=== PATIENT | female | born 1955 | race Caucasian/White ===

== ENCOUNTER 2024-10-27 09:11 | Outpatient (OUT) | payer MEDICARE, SELFPAY ==
--- OUTSIDE RECORDS SUMMARY | 2024-10-27 09:13 | XMS_ITS | Encounter Summary ---
Author Organization [facility] Address [address] [facility] [place] [address] Care Team Providers Care Apiarist Name Role Phone Holden Quintana Primary Care Provider [phone] Encounter Details Date Type Department Care Team ([facility] Contact Info) Description 02/13/2023 Abstract [facility] [address] [phone] Magy Fierro, [address] [facility] [address] [place] [address] Social History Tobacco Use Types Packs/Day Years Used Date Smoking Tobacco: Never Smokeless Tobacco: Never Alcohol Use Standard Drinks/Week Comments Not Currently 0 (1 standard drink = 0.6 oz pure alcohol) caffeine intake: 1-2 cups per day; soda Comments Unknown Sex and Gender Information Value Date Recorded Sex Assigned at Not on file Legal Sex Female 6:56 PM EDT Gender Identity Not on file Sexual Orientation Not on file documented as of this encounter Plan of Treatment Upcoming Encounters Date Type Department Care Team ([facility] Contact Info) Description 12/15/2024 11:15 AM EDT Office Visit [facility] [address] [facility] [address] [place] [phone] Magy Fierro, [address] [facility] [address] [place] [address] documented as of this encounter Visit Diagnoses Not on filedocumented in this encounter Care Teams Apiarist Relationship Specialty Start Date End Date Holden Quintana [address] [facility] [place] [address] PCP - General Family Medicine 11/06/22 documented as of this encounter
--- OUTSIDE RECORDS SUMMARY | 2024-10-27 09:13 | XMS_ITS | Encounter Summary ---
Author Organization [facility] Address [address] [facility] [place] [address] Care Team Providers Care Manager Financial Systems Name Role Phone Holden Quintana Primary Care Provider [phone] Encounter Details Date Type Department Care Team (Late Contact Info) Description 12/06/2022 External Result Encounter [facility] External Department Unsolicited Magy Fierro, DO [address] [facility] [address] [place] [address] Social History Tobacco Use Types Packs/Day Years Used Date Smoking Tobacco: Never Assessed Comments Unknown Sex and Gender Information Value Date Recorded Sex Assigned at Not on file Legal Sex Female 6:56 PM EDT Gender Identity Not on file Sexual Orientation Not on file documented as of this encounter Plan of Treatment Upcoming Encounters Date Type Department Care Team ([facility] Contact Info) Description 12/15/2024 11:15 AM EDT Office Visit [facility] [address] [facility] [address] [place] [phone] Magy Fierro, DO [address] [facility] [address] [place] [address] documented as of this encounter Procedures Procedure Name Priority Date/Time Associated Diagnosis Comments BI MAMMOGRAM SCREENING BILATERAL 12/06/2022 9:02 AM EDT documented in this encounter Results * Bilateral screening mammogram (12/06/2022 9:02 AM EDT) Anatomical Region Laterality Modality Breast Bilateral Mammography 12/06/2022 9:02 AM EDT Impressions 12/06/2022 12:33 PM EDT No mammographic evidence of malignancy. Routine follow-up recommended in one year. RESULT CODE: 2 Benign Findings(s) DENSITY CODE: 2 (approximately 25-50% glandular) FOLLOW UP: 1YR THE FALSE-NEGATIVE RATE OF MAMMOGRAPHY IS APPROXIMATELY 10%. IMAGING OF A PALPABLE ABNORMALITY MUST BE BASED ON CLINICAL GROUNDS. PATIENT WAS ENTERED INTO A REMINDER SYSTEM WITH A TARGET DUE DATE FOR THE NEXT MAMMOGRAM. Impression dictated by: Alexey Villatoro M.D.12/06/2022 9:09 AM Dictation Location: [facility] Transcribed By: PWS 12/06/22908 Dictated By: Alexey Villatoro DO 12/06/22901 Signed By: <Electronically signed by Alexey Villatoro DO in OV> 12/06/22 09 Narrative 12/06/2022 12:33 PM EDT [facility] [address] Mammography Report Signed Patient: Mirella Roblero MR#: [id number] : 1955 Acct:[id number] Age/Sex: 67 / F ADM Date: 12/06/22 Loc: [place] Room: Type: [facility] Attending Dr: Magy Fierro DO Copies to: DO Magy Howell DO Ordering Provider: Magy Fierro DO Date of Service: 12/06/22 MM/MM screening mammo BI w/CAD: screening;Breast cancer screening BILATERAL Screening Full Field digital mammogram with 3-D imaging. Full field digital CC and MLO imaging performed. CAD utilized. COMPARISON: 12/05/2021 HISTORY: Annual screening BREAST COMPOSITION: Scattered fibroglandular densities of the breast parenchyma identified BENIGN BREAST CALCIFICATIONS: Present VASCULAR CALCIFICATIONS: None DEVELOPING ARCHITECTURAL DISTORTION: None DEVELOPING BREAST NODULE: None DEVELOPING MALIGNANT CALCIFICATIONS: None AXILLARY LYMPH NODES: Normal POSTSURGICAL CHANGES: Right biopsy marking clip redemonstrated. MM/MM screening mammo BI w/CAD Procedure Note Radiology, Radiologist, - 12/06/2022 [facility] [address] [place] [address] Mammography Report Signed Patient: Mirella Roblero AMR#: [id number] : 5Acct:[id number] Age/Sex: 67 / FADM Date: 12/06/22 Loc: [place] Room:[facility] Attending Dr: Magy Fierro DO Copies to: DO Magy Howell DO Ordering Provider: Magy Fierro DO Date of Service: 12/06/22 MM/MM screening mammo BI w/CAD:screening;Breast cancer screening BILATERAL Screening Full Field digital mammogram with 3-D imaging. Full field digital CC and MLO imaging performed. CAD utilized. COMPARISON: 12/05/2021 HISTORY: Annual screening BREAST COMPOSITION: Scattered fibroglandular densities of the breastparenchyma identified BENIGN BREAST CALCIFICATIONS: Present VASCULAR CALCIFICATIONS: None DEVELOPING ARCHITECTURAL DISTORTION: None DEVELOPING BREAST NODULE: None DEVELOPING MALIGNANT CALCIFICATIONS: None AXILLARY LYMPH NODES: Normal POSTSURGICAL CHANGES: Right biopsy marking clip redemonstrated. MM/MM screening mammo BI w/CAD IMPRESSION: No mammographic evidence of malignancy. Routine follow-up recommended inone year. RESULT CODE: 2 Benign Findings(s) DENSITY CODE: 2 (approximately 25-50% glandular) FOLLOW UP: 1YR THE FALSE-NEGATIVE RATE OF MAMMOGRAPHY IS APPROXIMATELY 10%. IMAGING OF A PALPABLE ABNORMALITY MUST BE BASED ON CLINICAL GROUNDS. PATIENT WAS ENTERED INTO A REMINDER SYSTEM WITH A TARGET DUE DATE FOR THENEXT MAMMOGRAM. Impression dictated by: Alexey Villatoro M.D.12/06/2022 9:09 AM Dictation Location: [facility] Transcribed By: [facility] 12/06/22908 Dictated By: Alexey Villatoro DO 12/06/22901 Signed By: <Electronically signed by Alexey Villatoro DO in OV> 12/06/22908 us Magy Fierro DO IMG BI PROCEDURES Final Res ult documented in this encounter Visit Diagnoses Not on filedocumented in this encounter Care Teams Manager Financial Systems Relationship Specialty Start Date End Date Holden Quintana [address] [place] [address] PCP - General Family Medicine 11/06/22 documented as of this encounter
--- OUTSIDE RECORDS SUMMARY | 2024-10-27 09:14 | XMS_ITS | Encounter Summary ---
Author Organization [facility] Address [address] [place] [address] Care Team Providers Care Torch Straightener And Heater Name Role Phone Holden Quintana DO Primary Care Provider [phone] Source Comments In the event this information is protected by the Federal Confidentiality of Alcohol and Drug AbusePatient Records regulations: The Federal rules restrict any use of the information to criminally investigate or prosecute any alcohol or drug abuse patient.[facility] Encounter Details Date Type Department Care Team (Late st Contact Info) Description 06/14/2021 Patient Msg [place] [address] Provider, Ccf Financial Clearance Social History Tobacco Use Types Packs/Day Years Used Date Smoking Tobacco: Never Smokeless Tobacco: Never Area Deprivation Index Answer Date Vicente rded National Score (1-100), lower number is lower ri sk Not on file 02/14/2021 State Score (1-10), lower number is lower risk N ot on file 02/14/2021 Data from: https://www.neighborhoodatlas.medicine.[facility].edu/. Last address used for calculation Not on file 02/14/2021 Comments No Sex and Gender Information Value Date Recorded Sex Assigned at Not on file Legal Sex Female 9:47 AM EST Gender Identity Not on file Sexual Orientation Not on file COVID-19 Exposure Response Date Recorded In the last month, have you been in contact with someone who was confirmed or suspected to have Coronavirus / COVID-19? No / Unsure 06/16/2021 11:47 AM EST documented as of this encounter Plan of Treatment Not on file documented as of this encounter Visit Diagnoses Not on filedocumented in this encounter Care Teams Torch Straightener And Heater Relationship Specialty Start Date End Date Holden Quintana DO [address] [place] [address] PCP - General 04/21/01 documented as of this encounter
--- OUTSIDE RECORDS SUMMARY | 2024-10-27 09:14 | XMS_ITS | Encounter Summary ---
Author Organization [facility] Address [address] [place] [address] Care Team Providers Care Pelletizer Operator Name Role Phone Holden Quintana DO Primary Care Provider [phone] Source Comments In the event this information is protected by the Federal Confidentiality of Alcohol and Drug AbusePatient Records regulations: The Federal rules restrict any use of the information to criminally investigate or prosecute any alcohol or drug abuse patient.[facility] Reason for Visit * Reason Comments Radiology XR Encounter Details Date Type Department Care Team (Late st Contact Info) Description 06/21/2021 Radiology Radiology [address] [place] [address] Ashley Cleveland, RT(R) Radiology XR Social History Tobacco Use Types Packs/Day Years Used Date Smoking Tobacco: Never Smokeless Tobacco: Never Area Deprivation Index Answer Date Vicente rded National Score (1-100), lower number is lower ri sk Not on file 02/14/2021 State Score (1-10), lower number is lower risk N ot on file 02/14/2021 Data from: https://www.neighborhoodatlas.medicine.[facility].edu/. Last address used for calculation Not on [...] have Coronavirus / COVID-19? No / Unsure 06/23/2021 5:02 PM EST documented as of this encounter Progress Notes * Ashley Cleveland RT(R) - 06/21/2021 9:25 AM EST Radiology Service Progress Note PATIENT NAME: Mirella Roblero DATE OF SERVICE: June 21, 2021 TIME: 9:25 AM PATIENT IDENTITY VERIFICATION COMPLETED USING TWO (2) IDENTIFIERS: Name and Date of confirmedby patient verbally. FALL SCREENING: Has the patient had 2 falls in the last year or 1 fall with injury or currently using an Ambulatory Assistive Device (Walker, Cane, Wheelchair, Crutches, etc.)? No PATIENT GENDER DATA: Female. status: : No status: NO. PATIENT RELEVANT IMPLANT DATA REVIEWED: Not Applicable RADIOLOGY DEPARTMENT: General X-ray: Exam(s) Completed: Spine X-Ray(s): Lumbar AP / LAT / L5-S1 Pelvis X-Ray: Pelvis with Hip Right PERIPHERAL IV DATA: Not applicable SIGNED BY: RT Kacey(R) June 21, 2021 9:25 AM documented in this encounter Plan of Treatment Not on file documented as of this encounter Visit Diagnoses Not on filedocumented in this encounter Care Teams Pelletizer Operator Relationship Specialty Start Date End Date Holden Quintana DO [address] [place] [address] PCP - General 04/21/01 documented as of this encounter
--- OUTSIDE RECORDS SUMMARY | 2024-10-27 09:14 | XMS_ITS | Encounter Summary ---
Author Organization [facility] Address [address] [facility] [place] [address] Care Team Providers Care Nautical Instrument Mechanic Name Role Phone Holden Quintana Primary Care Provider [phone] Reason for Visit * Reason Comments Med Refill Encounter Details Date Type Department Care Team ([facility] Contact Info) Description 11/18/2022 Refill [facility] [address] [address] Magy Fierro, DO [address] [address] Social History Tobacco Use Types Packs/Day Years Used Date Smoking Tobacco: Never Assessed Comments Unknown Sex and Gender Information Value Date Recorded Sex Assigned at Not on file Legal Sex Female 6:56 PM EDT Gender Identity Not on file Sexual Orientation Not on file documented as of this encounter Plan of Treatment Upcoming Encounters Date Type Department Care Team ([facility] Contact Info) Description 12/15/2024 11:15 AM EDT Office Visit [facility] [address] [address] Magy Fierro, DO [address] [facility] [address] [place], [place] [phone] documented as of this encounter Visit Diagnoses Not on filedocumented in this encounter Care Teams Nautical Instrument Mechanic Relationship Specialty Start Date End Date Holden Quintana [address] [facility] [place] [address] PCP - General Family Medicine 11/06/22 documented as of this encounter
--- OUTSIDE RECORDS SUMMARY | 2024-10-27 09:14 | XMS_ITS | Encounter Summary ---
Author Organization [facility] Address [address] [place] [address] Care Team Providers Care Mulling Machine Operator Name Role Phone Holden Quintana DO Primary Care Provider [phone] Source Comments In the event this information is protected by the Federal Confidentiality of Alcohol and Drug AbusePatient Records regulations: The Federal rules restrict any use of the information to criminally investigate or prosecute any alcohol or drug abuse patient.[facility] Encounter Details Date Type Department Care Team (Late st Contact Info) Description 04/12/2021 Patient Msg [facility] [place] [address] Provider, Ccf SCHEDULE INJECTION Social History Tobacco Use Types Packs/Day Years Used Date Smoking Tobacco: Never Smokeless Tobacco: Never Area Deprivation Index Answer Date Vicente rded National Score (1-100), lower number is lower ri sk Not on file 02/14/2021 State Score (1-10), lower number is lower risk N ot on file 02/14/2021 Data from: https://www.neighborhoodatlas.medicine.[facility].edu/. Last address used for calculation Not on [...] have Coronavirus / COVID-19? No / Unsure 04/07/2021 8:04 AM EDT documented as of this encounter Plan of Treatment Not on file documented as of this encounter Visit Diagnoses Not on filedocumented in this encounter Care Teams Mulling Machine Operator Relationship Specialty Start Date End Date Holden Quintana DO [address] [place] [address] PCP - General 04/21/01 documented as of this encounter
--- OUTSIDE RECORDS SUMMARY | 2024-10-27 09:14 | XMS_ITS | Encounter Summary ---
Author Organization [facility] Address [address] [place] [address] Care Team Providers Care Ovens Supervisor Name Role Phone Holden Quintana DO Primary Care Provider [phone] Source Comments In the event this information is protected by the Federal Confidentiality of Alcohol and Drug AbusePatient Records regulations: The Federal rules restrict any use of the information to criminally investigate or prosecute any alcohol or drug abuse patient.[facility] Encounter Details Date Type Department Care Team (Late st Contact Info) Description 01/05/2022 GI Preprocedure Call Ambulatory Surgery [address] [place] [address] [place] [address] [place] [address] Social History Tobacco Use Types Packs/Day Years Used Date Smoking Tobacco: Never Smokeless Tobacco: Never Area Deprivation Index Answer Date Vicente rded National Score (1-100), lower number is lower ri sk 54 10/25/2021 State Score (1-10), lower number is lower risk N ot on file 10/25/2021 Data from: https://www.neighborhoodatlas.medicine.[facility].edu/. Last address used for calculation [address] [facility] 10/25/2021 Comments No Sex and Gender Information Value Date Recorded Sex Assigned at Not on file Legal Sex Female 9:47 AM EST Gender Identity Not on file Sexual Orientation Not on file documented as of this encounter Plan of Treatment Not on file documented as of this encounter Visit Diagnoses Not on filedocumented in this encounter Care Teams Ovens Supervisor Relationship Specialty Start Date End Date Holden Quintana DO [address] [place] [address] PCP - General 04/21/01 documented as of this encounter
--- OUTSIDE RECORDS SUMMARY | 2024-10-27 09:14 | XMS_ITS | Clinical Summary ---
Author Organization [facility] Address [address] [place] [address] Care Team Providers Care Sorority Mother Name Role Phone Holden Quintana Primary Care Provider Allergies No known active allergies Medications amLODIPine (Norvasc) 5 MG tablet Take 5 mg by mouth in the morning. for blood pressure. 3 Active aspirin 81 MG chewable tablet Chew 81 mg in the morning. Active meloxicam (Mobic) 15 MG tablet take 1 tablet by mouth daily for back pain Active estradiol (Estrace) 1 MG tablet 1 (one) time each day at the same time. Active Premarin 0.625 MG/GM creamIndications :Postmenopausal HRT (hormone replacement therapy) INSERT 1 GRAM VAGINALLY TWICE WEEKLY 30 g 3 4 Active Active Problems Problem Noted Date Diagnosed Date Paresthesia of skin 06/02/2024 Spondylolisthesis, cervical region 06/02/2024 Arthritis of lumbar spine 09/24/2023 Acute hip pain, left 09/24/2023 Encounters Date Type Department Care Team Description 09/03/2024 Telephone [facility] [address] [place] [address] Magy Fierro DO from Last 3 Months Family History Medical History Relation Name Comments No Known Problems Daughter Covid Father Hypertension Father Alcohol abuse Mother Diabetes Mother Heart disease Mother Hypertension Mother Thyroid disease Mother Asthma Other Grandparent Stroke Paternal Grandfather Cancer Sibling Diabetes Sibling Prostate cancer Sibling Relation Name Status Comments Daughter Father Maternal Grandfather Maternal Grandmother Mother Other Grandparent Paternal Grandfather Paternal Grandmother Sibling Alive Social History Tobacco Use Types Packs/Day Years Used Date Smoking Tobacco: Never Smokeless Tobacco: Never Tobacco Cessation:Counseling Given: Not Answered Alcohol Use Standard Drinks/Week Comments Not Currently 0 (1 standard drink = 0.6 oz pure alcohol) caffeine intake: 1-2 cups per day; soda Comments Unknown Sex and Gender Information Value Date Recorded Sex Assigned at Not on file Legal Sex Female 6:56 PM EDT Gender Identity Not on file Sexual Orientation Not on file Last Filed Vital Signs Vital Sign Reading Time Taken Comments Blood Pressure 120/70 02/14/2023 11:37 AM EDT Pulse - - Temperature - - Respiratory Rate - - Oxygen Saturation - - Inhaled Oxygen Concentration - - Weight 64.9 kg (143 lb) 02/14/2023 11:37 AM EDT Height 160 cm (5' 3 ) 02/14/2023 11:37 AM EDT Body Mass Index 25.33 02/14/2023 11:37 AM EDT Plan of Treatment Upcoming Encounters Date Type Department Care Team (Late st Contact Info) Description 12/15/2024 11:15 AM EDT [facility] [address] [facility] [address] [place] [phone] Magy Fierro, DO [address] [facility] [address] [place] [address] Health Maintenance Due Date Last Done Comments CT Colonography 1955 FIT-DNA 1955 FIT 1955 FOBT 1955 Sigmoidoscopy 1955 Pneumococcal Vaccine: 65+ Ye ars (2 of 2 - PPSV23) 03/04/2022 03/04/2021 Mammogram 12/07/2023 12/06/2022, 07/0 10/2021, 06/05/2021, Additional history exists Colonoscopy 01/13/2032 01/12/2022, 01/12/2022 Colorectal Cancer Screening 01/13/2032 Influenza Vaccine Completed 03/19/2024, , 02/27/2022, Additional history exists Procedures Procedure Name Priority Date/Time Associated Diagnosis Comments BI MAMMOGRAM SCREENING BILATERAL 12/06/2022 9:02 AM EDT from Last 3 Months or Most Recently Relevant to Health Maintenance Results * Bilateral screening mammogram (12/06/2022 9:02 [...] Alexey Villatoro M.D.12/06/2022 9:09 AM Dictation Location: [facility] Transcribed By: [facility] 12/06/22 0909 Dictated By: Alexey Villatoro DO 12/06/22 0902 Signed By: <Electronically signed by Alexey Villatoro DO in OV> 12/06/22 0909 Narrative 12/06/2022 12:33 PM EDT [facility] Main [place] [address] [place] [address] Mammography Report Signed Patient: Mirella Roblero MR#: [id number] : 1955 Acct:[id number] Age/Sex: 67 / F ADM Date: 12/06/22 Loc: [place] Room: Type: [facility] Attending Dr: Magy Fierro DO Copies to: [...] mammo BI w/CAD Procedure Note Radiology, Radiologist, MD - 12/06/2022 [facility] Main [place] [address] [place], [place] [address] Mammography Report Signed Patient: Mirella Roblero AMR#: [id number] : 5Acct:[id number] Age/Sex: 67 / FADM Date: 12/06/22 Loc: [place] Room:Type: [facility] Attending Dr: Magy Fierro DO Copies to: [...] FOR THENEXT MAMMOGRAM. Impression dictated by: Alexey iVllatoro M.D.12/06/2022 9:09 AM Dictation Location: [facility] Transcribed By: TEN 12/06/22908 Dictated By: Alexey Villatoro DO 12/06/22901 Signed By: <Electronically signed by Alexey Villatoro DO in OV> 12/06/22 09 us Magy Fierro DO IMG BI PROCEDURES Final Res ult from Last 3 Months or Most Recently Relevant to Health Maintenance Insurance [employer] MEDICARE Care Teams Sorority Mother Relationship Specialty Start Date End Date Holden Quintana [address] [place] [address] PCP - General Family Medicine 11/06/22
--- OUTSIDE RECORDS SUMMARY | 2024-10-27 09:14 | XMS_ITS | Clinical Summary ---
Author Organization [facility] Address [address] [place], [place] [id number] Care Team Providers Care Cable Television Technician Name Role Phone Holden Quintana DO Primary Care Provider [phone] Allergies No known active allergies Medications conjugated estrogens (PREMARIN) vaginal cream Use 30 g vaginally one time a week. Active aspirin 81 mg chewable tablet Take 81 mg by mouth once daily. Active venlafaxine (EFFEXOR) 37.5 mg tablet Take 37.5 mg by mouth every other day. Active estradiol (ESTRACE) 2 mg tablet Take 2 mg by mouth every other day. Active multivitamin (VITAMIN DAILY ORAL) Take by mouth. Activ e CALCIUM ORAL Take by mouth. Ac tive glucosamine sulfate (GLUCOSAMINE ORAL) Take by mouth. Activ e psyllium seed, with sugar, (FIBER ORAL) Take by mouth. Ac tive meloxicam (MOBIC) 15 mg tablet Take 1 tablet by mouth once daily. 60 tablet 1 Active gabapentin (NEURONTIN) 100 mg capsule Take one tablet at bedtime for one week,2nd week take two tablets at bedtime,3rd week take three tablets at bedtime as tolerated. 90 capsule 2 2 Active polyethylene glycol 3350 (MIRALAX, GLYCOLAX) 17 gram/dose powderIndications :Constipation, unspecified constipation type Use as directed for Miralax / Gatorade Bowel Prep Kit 238 g 2 Active Gatorade Sports DrinkIndications: Constipation, unspecified constipation type Use as directed for Miralax / Gatorade Bowel Prep Kit 2 Active Bisacodyl (DULCOLAX) 5 mg tabIndications:Co nstipation, unspecified constipation type Use as directed for Miralax / Gatorade Bowel Prep Kit 4 tablet 2 Active Active Problems Problem Noted Date Diagnosed Date Radicular pain of right lower extremity 06/29/19 22 Lumbar degenerative disc disease 06/29/2021 Coccydynia 05/08/2021 Social History Tobacco Use Types Packs/Day Years Used Date Smoking Tobacco: Never Smokeless Tobacco: Never Area Deprivation Index Answer Date Vicente rded National Score (1-100), lower number is lower ri sk 54 06/29/2022 State Score (1-10), lower number is lower risk N ot on file 06/29/2022 Data from: https://www.neighborhoodatlas.medicine.[facility].edu/. Last address used for calculation [address] [facility] 06/29/2022 Comments No Sex and Gender Information Value Date Recorded Sex Assigned at Not on file Legal Sex Female 9:47 AM EST Gender Identity Not on file Sexual Orientation Not on file Last Filed Vital Signs Vital Sign Reading Time Taken Comments Blood Pressure 147/84 01/12/2022 11:05 AM EDT Pulse 53 01/12/2022 10:42 AM EDT Temperature 36.2 C (97.1 F) 01/12/2022 10:45 AM EDT Respiratory Rate 16 01/12/2022 11:05 AM EDT Oxygen Saturation 97% 01/12/2022 11:05 AM EDT Inhaled Oxygen Concentration - - Weight 67.1 kg (148 lb) 06/29/2021 8:29 AM EST Height 162.6 cm (5' 4 ) 09/29/2021 11:00 AM EDT Body Mass Index 25.4 06/29/2021 8:29 AM EST Plan of Treatment Health Maintenance Due Date Last Done Comments Anxiety Screening 1973 Depression Screening 1973 Hepatitis C Screening 1973 DTaP,Tdap,Td Vaccine (1 - Tdap) [address] Colonography 2000 Cologuard (FIT-DNA) 2000 Diabetes Screening 2000 Fecal Occult Blood 2000 Lipid Screening 2000 Sigmoidoscopy 2000 Bone Density Screening 2020 Pneumococcal Vaccine: 50+ (2 of 2 - PPSV23) 03/04/2022 03/04/2021 Colonoscopy 01/12/2023 01/12/2022 Colorectal Cancer Screening 01/12/2023 Covid-19 Vaccine (5 - 2023-2 5 season) 2024 10/19/2021, 03/04/2021, 08/18/2020, Additional history exists Advance Directive Discussion 06/03/2024 Influenza Vaccine (Season Ended) 2025 03/04/2021, 03/21/2020, 03/03/2020, Additional history exists RSV Vaccine (1 - 1-dose 75+ series) 2030 Shingrix Vaccine Completed 07/09/2019, 04/02/2019 Procedures Procedure Name Priority Date/Time Associated Diagnosis Comments COLONOSCOPY DIAGNOSTIC Routine 01/12/2022 10:11 AM EDT Constipation, unspecified constipation type from Last 3 Months or Most Recently Relevant to Health Maintenance Results * COLONOSCOPY DIAGNOSTIC (01/12/2022 10:11 AM EDT) Anatomical Region Laterality Modality Other 01/12/2022 10:1 1 AM EDT Narrative 01/12/2022 10:46 AM EDT [facility] Gastrointestinal Endoscopy Patient Name: Mirella Roblero Procedure Date: 01/12/2022 10:11 AM Date of : 1955 Admit Type: Outpatient Age: 66 Gender: Female Note Status: Finalized Procedure: Colonoscopy Indications: Constipation Providers: Derick Lin MD Patient Profile: This is a 66 year old female. Refer to note in patient chart for documentation of history and physical. Last Colonoscopy: 10 years ago. Referring Physician: Dina Croft CNP (Referring MD) Medicines: Monitored Anesthesia Care Complications: No immediate complications. Requesting Provider: Procedure: Pre-Anesthesia Assessment: - Prior to the procedure, a History and Physical was performed, and patient medications and allergies were reviewed. The patient's tolerance of previous anesthesia was also reviewed. The risks and benefits of the procedure and the sedation options and risks were discussed with the patient. All questions were answered, and informed consent was obtained. Prior Anticoagulants: The patient has taken no previous anticoagulant or antiplatelet agents. ASA Grade Assessment: II - A patient with mild systemic disease. After reviewing the risks and benefits, the patient was deemed in satisfactory condition to undergo the procedure. After I obtained informed consent, the scope was passed under direct vision. Throughout the procedure, the patient's blood pressure, pulse, and oxygen saturations were monitored continuously. The Colonoscope was introduced through the anus and advanced to the cecum, identified by appendiceal orifice and ileocecal valve. The colonoscopy was performed without difficulty. The patient tolerated the procedure well. The quality of the bowel preparation was excellent. The quality of the bowel preparation was evaluated using the BBPS (Burr Bowel Preparation Scale) with scores of: Right Colon = 3, Transverse Colon = 3 and Left Colon = 3 (entire mucosa seen well with no residual staining, small fragments of stool or opaque liquid). The total BBPS score equals 9. The ileocecal valve, appendiceal orifice, and rectum were photographed. Moderate Sedation: MAC anesthesia was administered by the anesthesia team. Findings: The perianal and digital rectal examinations were normal. A 2 mm polyp was found in the sigmoid colon. The polyp was sessile. The polyp was removed with a cold biopsy forceps. Resection and retrieval were complete. Internal hemorrhoids were found during retroflexion. The hemorrhoids were Grade II (internal hemorrhoids that prolapse but reduce spontaneously). The exam was otherwise without abnormality. Impression: - One 2 mm polyp in the sigmoid colon, removed with a cold biopsy forceps. Resected and retrieved. - Internal hemorrhoids. - The examination was otherwise normal. Recommendation: - Discharge patient to home (ambulatory). - Resume previous diet today. - Continue present medications. - Await pathology results. - Recommend 80 ounces water daily, benefiber BID and probiotic daily. - Repeat colonoscopy with pediatric scope for surveillance based on pathology results. - Patient has a contact number available for emergencies. The signs and symptoms of potential delayed complications were discussed with the patient. Return to normal activities tomorrow. Written discharge instructions were provided to the patient. Procedure Code(s): --- Professional --- 71238, Colonoscopy, flexible; with biopsy, single or multiple Diagnosis Code(s): --- Professional --- K63.5, Polyp of colon K64.1, Second degree hemorrhoids K59.00, Constipation, unspecified CPT copyright 2019 [employer]. All rights reserved. The codes documented in this report are preliminary and upon store mgr review may be revised to meet current compliance requirements. Attending Participation: I personally performed the entire procedure. Scope In: 10:25:10 AM Scope Out: 10:41:07 AM MD Derick Beltrán MD 01/12/2022 10:44:05 AM This report has been signed electronically by Derick Lin MD Number of Addenda: 0 Note Initiated On: 01/12/2022 10:11 AM Estimated Blood Loss: Estimated blood loss was minimal. 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
--- OUTSIDE RECORDS SUMMARY | 2024-10-27 09:14 | XMS_ITS | Clinical Summary ---
Author Organization [facility] Address [address] [place] [address] Phone Care Team Providers Care Stumper Feller Name Role Phone Unavailable Primary Care Provider Unavailabl e Social History Tobacco Use Types Packs/Day Years Used Date Smoking Tobacco: Never Assessed Comments Unknown Sex and Gender Information Value Date Recorded Sex Assigned at Not on file Legal Sex Female 5:58 PM EST Gender Identity Not on file Sexual Orientation Not on file Plan of Treatment Not on file
--- NOTE | 2024-10-27 09:16 | ECG_ITS ---
[facility] Test Date: 2024-10-27 Pat Name: DANIEL CHRISTY Department: Room: - Gender: Female Brass Burnisher: : 1955 Requested By: KATHRYN PENDLETON Order Number: [id number] Reading MD: BUD BAXTER M.D. Measurements Intervals Elbe Rate: 61 P: 6 IN: 169 QRS: -47 QRSD: 119 T: -62 QT: 434 QTc: 440 Interpretive Statements SINUS RHYTHM LEFT ANTERIOR FASCICULAR BLOCK [QRS AXIS <= -45, QR IN I, RS IN II] LEFT VENTRICULAR HYPERTROPHY AND ST-T CHANGE [VOLTAGE CRITERIA PLUS ST/T ABNORMALITY] POSSIBLE SEPTAL MYOCARDIAL INFARCTION [30 ms Q WAVE IN V1/V2], PROBABLY OLD Abnormal ECG No previous ECG available for comparison Electronically Signed On 10-27-2024 13:33:37 EDT by BUD BAXTER M.D.
--- NOTE | 2024-10-27 09:58 | PM.PRESUREVA ---
History of Present Illness History of Present Illness Chief complaint: Left Kidney Stone Narrative: Patient presents for presurgical testing accompanied by her . Please see HPI from Dr. Kingsley dated October 21, 2024. Review of Systems ROS Narrative Please see ROS from Dr. Kingsley dated October 21, 2024. [facility] Medical History (Updated 10/27/24 @ 09:44 by Hortencia Toro NP) Carpal tunnel syndrome ?G56.00 - Carpal tunnel syndrome, unspecified upper limb (ICD-10) Back pain ?M54.9 - Dorsalgia, unspecified (ICD-10) Arthritis ?M19.90 - Unspecified osteoarthritis, unspecified site (ICD-10) Low iron ?E61.1 - Iron deficiency (ICD-10) Asthma ?J45.909 - Unspecified asthma, uncomplicated (ICD-10) GERD (gastroesophageal reflux disease) ?K21.9 - Gastro-esophageal reflux disease without esophagitis (ICD-10) Hypertension ?I10 - Essential (primary) hypertension (ICD-10) Left renal stone ?N20.0 - Calculus of kidney (ICD-10) Surgical History (Updated 10/27/24 @ 09:44 by Hortencia Toro NP) History of cardiac catheterization (2020) ?Z98.890 - Other specified postprocedural states (ICD-10) History of colonoscopy ?Z98.890 - Other specified postprocedural states (ICD-10) S/P cataract extraction and insertion of intraocular lens ?Z98.49 - Cataract extraction status, unspecified eye (ICD-10) ?Z96.1 - Presence of intraocular lens (ICD-10) History of carpal tunnel release ?Z98.890 - Other specified postprocedural states (ICD-10) History of hysterectomy ?Z90.710 - Acquired absence of both cervix and uterus (ICD-10) History of cholecystectomy ?Z90.49 - Acquired absence of other specified parts of digestive tract (ICD-10) Family History (Updated 10/27/24 @ 09:44 by Hortencia Toro NP) Other Family history of diabetes mellitus Family history of heart disease Family history of hypertension Family history of myocardial infarction Family history of prostate cancer Family history of stroke Social History (Updated 10/27/24 @ 09:28 by Hortencia Toro NP) Within the past year, how often did you have a drink containing alcohol: monthly or less Smoking status: Never smoker Non-prescribed substance use: denies use Highest level of school completed/degree received: high school graduate Meds Home Medications and Allergies Home Medications ?Medication ?Instructions ?Recorded ?Confirmed ?Type amlodipine 5 mg tablet 5 mg PO DAILY 10/27/24 10/27/24 History conjugated estrogens 0.625 mg/gram 0.625 mg vaginal .twice weekly 10/27/24 10/27/24 History vaginal cream (Premarin) pantoprazole 40 mg tablet,delayed 40 mg PO DAILY 10/27/24 10/27/24 History release venlafaxine 37.5 mg 37.5 mg PO .every other day 10/27/24 10/27/24 History capsule,extended release 24 hr Allergies Allergy/AdvReac Type Severity Reaction Status Date / Time No Known Drug Allergies Allergy Verified 10/27/24 09:25 Exam Narrative Exam Narrative: Constitutional: Awake, alert, comfortable, well-appearing, nontoxic, interactive, vital signs as charted Head: Normocephalic, atraumatic Neck: Supple, normal appearance, normal range of motion, no meningeal signs, no lymphadenopathy Respiratory: No respiratory distress, breath sounds clear Cardiovascular: Regular rate and rhythm, strong and regular heart tones Abdomen: Nontender, normal bowel sounds, soft, no CVA tenderness Musculoskeletal: Normal gait, no swelling or edema Skin: No rashes or induration, no lesions, only visible skin inspected Neuro: No neurological deficits, normal sensation Psychiatric: Oriented ?3, normal affect Assessment and Plan Assessment and Plan (1) Left renal stone: Plan Left ESWL scheduled with Dr. Kingsley November 05, 2024.
[2024-10-27 10:14] LABS: Basophils Percent Auto 0.5 % (0.2-2.0); Eosinophils Absolute Auto 0.2 10^3/uL (0.0-0.7); Eosinophils Percent Auto 5.5 % (0.9-7.0); Hematocrit 42.6 % (36.0-48.0); Hemoglobin 14.3 g/dL (12.0-16.0); Immature Granulocytes Abs Auto 0.01 10^3/uL (0.00-0.03); Immature Granulocytes Pct Auto 0.2 % (0.0-0.5); Lymphocytes Percent Auto 24.5 % (20.5-60.0); Mean Corpuscular HGB Conc 33.6 g/dL (29.9-35.2); Mean Corpuscular Hemoglobin 30.2 pg (26.7-34.0); Mean Corpuscular Volume 90.1 fL (81.0-99.0); Mean Platelet Volume 10.3 fL (9.5-13.5); Monocytes Absolute Auto 0.6 10^3/uL (0.3-0.8); Monocytes Percent Auto 14.6 % (1.7-12.0); Neutrophils Absolute Auto 2.3 10^3/uL (1.4-6.5); Neutrophils Percent Auto 54.7 % (43.0-75.0); Platelet Count 222 10^3/uL (150-450); Red Blood Count 4.73 10^6/uL (4.20-5.40); Red Cell Distribution Width 11.9 % (11.0-15.0); White Blood Count 4.2 10^3/uL (4.0-11.0)
[2024-10-27 10:17] LABS: Anion Gap 12.8; BUN Creatinine Ratio 15.1; Carbon Dioxide 29.2 mmol/L (21.0-32.0); Chloride 105 mmol/L (98-107); Estimated GFR (African America >60 (>=60 mL/min/1.73m^2); Estimated GFR (Non-African Ame 60 (>=60 mL/min/1.73m^2); Glucose 91 mg/dL (74-106); Sodium 143 mmol/L (136-145)
[2024-10-27 10:22] LABS: INR 0.99; Partial Thromboplastin Time 27.4 sec (22.3-36.2); Prothrombin Time 10.5 sec (9.0-11.6)
== END 2024-10-27 09:12 | disposition home or self-care (01) ==
LOC: PST 09:12
PROVIDERS: PCP Family Medicine; Visit Provider Urology
DX: Z01.810 Encounter for preprocedural cardiovascular examination (principal); Z01.812 Encounter for preprocedural laboratory examination; Z01.818 Encounter for other preprocedural examination; N20.0 Calculus of kidney
CPT/HCPCS: 80048; 85025; 85610; 85730; 93005; G0463

== ENCOUNTER 2024-11-05 09:54 | Day surgery (SDC) | payer MEDICARE, SELFPAY ==
[2024-10-27 09:51] VITALS: BP 156/75; PULSE 66; TEMP 36.3; O2SAT 98; BMI 25.7
--- OUTSIDE RECORDS SUMMARY | 2024-11-02 14:00 | XMS_ITS | Encounter Summary ---
Author Organization [facility] Address [address] [place] [address] Phone Care Team Providers Care Tower Helper Name Role Phone Holden Quintana DO Primary Care Provider [phone] Agapito Kingsley MD Unavailable Reason for Referral * Consultation (Routine) - Authorized Specialty Diagnoses / Procedures Referred By Contac t Referred To Contact Cardiology Diagnoses Mild CAD Procedures Follow Up In Cardiology Pushpa Hawthorne APRN-CNP [address] [address] Phone: tel: fax: Referral ID Status Reason Start Date Expiration Date V isits Requested Visits Authorized [id number] Authorized 11/02/2024 11/02/2025 1 1 * Cardiovascular (Routine) - Authorized Specialty Diagnoses / Procedures Referred By Contkita t Referred To Contact Diagnoses Pre-operative cardiovascular examination Procedures ECG 12 Lead Pushpa Hawthorne APRN-CNP 703 [facility] [address] [address] Phone: tel: fax: Referral ID Status Reason Start Date Expiration Date V isits Requested Visits Authorized [id number] Authorized 11/02/2024 11/02/2025 1 1 Reason for Visit * Reason Comments New Patient Visit Pre-op Clearance Kingsley-lithotripsy * Cardiovascular (Routine) - Authorized Specialty Diagnoses / Procedures Referred By Contkita t Referred To Contact Diagnoses Pre-operative cardiovascular examination Procedures ECG 12 Lead Pushpa Hawthorne OPERATIONS LOGISTICS ANALYST-TEA BLENDER 703 [facility] [address] [place] [address] Phone: tel: fax: Referral ID Status Reason Start Date Expiration Date V isits Requested Visits Authorized [id number] Authorized 11/02/2024 11/02/2025 1 1 Encounter Details Date Type Department Care Team (Latest Contact Info) Description 11/02/2024 2:00 PM EDT Office Visit [address] [place] [address] Pushpa Hawthorne OPERATIONS LOGISTICS ANALYST-TEA BLENDER 702 [facility] [address], [address] [place] [address] Pre-operative cardiovascular examination (Primary Dx); [...] contact the office if new symptoms arise. PLANOGRAPH OPERATOR 4 months documented in this encounter Progress Notes * HEENA Clark - 11/02/2024 2:00 PM EDT New Patient Visit and Pre-op Clearance (Kingsley-lithotripsy 11/05/24), abnormal POC ECG. History Of Present Illness: Mirella Roblero is a 69 y.o. female presenting to [...] Major clinical markers: -Acute coronary syndrome or NV within 30 days: No -Decompensated heart failure: No -Significant arrhythmia: No -Severe valvular heart disease: No 2. Intermediate clinical markers -History of ischemic heart disease (prior NV, current chest pain secondary to ischemia, use [...] to address primary prevention. Pushpa Hawthorne MSN, OPERATIONS LOGISTICS ANALYST-TEA BLENDER, PMHNP-BC [facility] [place], [place] Please excuse any errors in grammar [...] Description 03/17/2025 8:00 AM EDT Office Visit [facility] [address] [place] [address] Pushpa Hawthorne APRN-CNP [address] [place] [address] documented as of this encounter Procedures Procedure [...] documented as of this encounter Care Teams Tower Helper Relationship Specialty Start Date End Date Holden Quintana DO [address] [facility] [place] [address] PCP - General Family Medicine 11/02/24 Agapito Kingsley MD [address]00 [facility] [place] [address] Referring Physician Urology 11/02/24 documented as of this encounter
[2024-11-05] VITALS (20 sets, daily range): BP systolic 119–175; BP diastolic 70–129; PULSE 52–62; TEMP 36.3–36.4; O2SAT 92–99; BMI 25.3
--- OUTSIDE RECORDS SUMMARY | 2024-11-05 09:57 | XMS_ITS | Encounter Summary ---
Author Organization [facility] Address [address] [place] [address] Phone Care Team Providers Care Drums Teacher Name Role Phone Holden Quintana DO Primary Care Provider [phone]- [phone] Agapito Kingsley MD Unavailable [phone] Encounter Details Date Type Department Care Team (Latest Contact Info) Description 11/02/2024 Travel Social History Tobacco Use Types Packs/Day Years [...] PM EDT documented as of this encounter Plan of Treatment Upcoming Encounters Date Type Department Care Team (Late st Contact Info) Description 03/17/2025 8:00 AM EDT Office Visit [facility] [address] [address] Pushpa Hawthorne, LOW VOLTAGE TECHNICIAN-DENTAL SCHEDULING COORDINATOR 703 [facility] 2, [facility] [address] [place] [address] documented as of this encounter Visit Diagnoses Not on filedocumented in this encounter Additional Health Concerns Assessment Noted Time A fall risk assessment has been complete d for the patient 11/02/2024 2:02 PM EDT documented as of this encounter Care Teams Drums Teacher Relationship Specialty Start Date End Date Holden Quintana DO [address]25 [facility] [place] [address] PCP - General Family Medicine 11/02/24 Agapito Kingsley MD [address] [facility] [place] [address] Referring Physician Urology 11/02/24 documented as of this encounter
--- OUTSIDE RECORDS SUMMARY | 2024-11-05 09:57 | XMS_ITS | Encounter Summary ---
Author Organization [facility] Address [address] [facility] [place] [address] Care Team Providers Care Senior Project Engineer Name Role Phone Holden Quintana Primary Care Provider [phone] Encounter Details Date Type Department Care Team (Late Contact Info) Description 12/06/2022 External Result Encounter [facility] External Department Unsolicited Magy Fierro, DO [address] [place] [address] Social History Tobacco Use Types Packs/Day Years Used Date Smoking Tobacco: Never Assessed Comments Unknown Sex and Gender Information Value Date Recorded Sex Assigned at Not on file Legal Sex Female 6:56 PM EDT Gender Identity Not on file Sexual Orientation Not on file documented as of this encounter Plan of Treatment Upcoming Encounters Date Type Department Care Team (Late Contact Info) Description 11/17/2024 8:45 AM EDT Office Visit [facility]EN ORTHOAO [address] [place] [address] Errol Vaughan, DO [address] [facility] [place] [address] 12/15/2024 11:15 AM EDT Office Visit [facility] [address] [place] [address] Magy Fierro, DO [address] [place] [address] documented as of this encounter Procedures Procedure [...] Location: [facility] Transcribed By: [facility] 12/06/22 09 Dictated By: Alexey Villatoro DO 12/06/22 0902 Signed By: <Electronically signed by Alexey Villatoro DO in OV> 12/06/22 0909 Narrative 12/06/2022 12:33 PM EDT [facility] [place] [address] Mammography Report Signed Patient: Mirella Roblero MR#: [id number] : 1955 Acct:[id number] Age/Sex: 67 / F ADM Date: 12/06/22 Loc: [place] Room: Type: [facility] Attending Dr: Magy Fierro DO Copies to: [...] Procedure Note Radiology, Radiologist, MD - 12/06/2022 [facility] Main [place] [address] [place] [address] Mammography Report Signed Patient: Mirella Roblero AMR#: [id number] : 5Acct:[id number] Age/Sex: 67 / FADM Date: 12/06/22 Loc: [place] Room:Type: [facility] Attending Dr: Magy Fierro DO Copies to: [...] FOR THENEXT MAMMOGRAM. Impression dictated by: Alexey Villtaoro M.D.12/06/2022 9:09 AM Dictation Location: [facility] Transcribed By: TEN 12/06/22 09 Dictated By: Alexey Villatoro DO 12/06/22 09 Signed By: <Electronically signed by Alexey Villatoro DO in OV> 12/06/22 0909 us Magy Fierro DO IMG BI PROCEDURES Final Res ult documented in this encounter Visit Diagnoses Not on filedocumented in this encounter Care Teams Senior Project Engineer Relationship Specialty Start Date End Date oHlden Quintana [address] [place] [address] PCP - General Family Medicine 11/06/22 documented as of this encounter
--- OUTSIDE RECORDS SUMMARY | 2024-11-05 09:57 | XMS_ITS | Encounter Summary ---
Author Organization [facility] Address [address] [place] [address] Care Team Providers Care Brushing Machine Operator Name Role Phone Holden Quintana Primary Care Provider [phone] Reason for Visit * Reason Comments Med Refill Encounter Details Date Type Department Care Team (Late Contact Info) Description 11/18/2022 Refill [facility] [address] [place] [address] Magy Fierro, DO [address] [facility] [address] [place] [address] Social History Tobacco Use Types Packs/Day Years Used Date Smoking Tobacco: Never Assessed Comments Unknown Sex and Gender Information Value Date Recorded Sex Assigned at Not on file Legal Sex Female 6:56 PM EDT Gender Identity Not on file Sexual Orientation Not on file documented as of this encounter Plan of Treatment Upcoming Encounters Date Type Department Care Team ([facility] Contact Info) Description 11/17/2024 8:45 AM EDT Office Visit [facility] KAREN ORTHOAO [address] [place] [address] Errol Vaughan, DO [address] [place] [address] 12/15/2024 11:15 AM EDT Office Visit [facility] [address] [place] [address] Magy Fierro, DO [address] [place] [address] documented as of this encounter Visit Diagnoses Not on filedocumented in this encounter Care Teams Brushing Machine Operator Relationship Specialty Start Date End Date Holden Quintana [address] [facility] [place] [place] [address] PCP - General Family Medicine 11/06/22 documented as of this encounter
--- OUTSIDE RECORDS SUMMARY | 2024-11-05 09:57 | XMS_ITS | Encounter Summary ---
Author Organization [facility] Address [address] [place] [address] Phone Care Team Providers Care Pipe Organ Tuner And Repairer Name Role Phone Holden Quintana DO Primary Care Provider [phone] Agapito Kingsley MD Unavailable [phone] Reason for Visit * Reason Onset Date Comments Pre-op Clearance 11/04/2024 Encounter Details Date Type Department Care Team (Late st Contact Info) Description 11/04/[address] [address] Vicky Means RN Pre-op Clearance Social History Tobacco Use Types Packs/Day [...] PM EDT documented as of this encounter Miscellaneous Notes * Telephone Encounter - Vicky Maens RN - 11/04/2024 9:06 AM EDT Laura from Dr Kingsley office phones requesting cardiac clearance for pt. Pt was see by Pushpa Guillen NP on Saturday. Clearance addressed in note. Note printed and faxed [phone] documented in this encounter Plan of Treatment Upcoming Encounters Date Type Department Care Team (Late st Contact Info) Description 03/17/2025 8:00 AM EDT Office Visit [facility] [address] [facility] [address] [place] [address] Pushpa Hawthorne, SWITCH COUPLER-MARKET REPORTER [facility] [address] [place] [address] documented as of this encounter Visit Diagnoses Not on filedocumented in this encounter Additional Health Concerns Assessment Noted Time A fall risk assessment has been complete d for the patient 11/02/2024 2:02 PM EDT documented as of this encounter Care Teams Pipe Organ Tuner And Repairer Relationship Specialty Start Date End Date Holden Quintana DO [address] [facility] [place] [address] PCP - General Family Medicine 11/02/24 Agapito Kingsley MD [address] [facility] [place] [address] Referring Physician Urology 11/02/24 documented as of this encounter
--- OUTSIDE RECORDS SUMMARY | 2024-11-05 09:57 | XMS_ITS | Encounter Summary ---
Author Organization [facility] Address [address] [place] [address] Phone Care Team Providers Care Votator Machine Operator Name Role Phone Unavailable Primary Care Provider Unavailabl e Reason for Visit * Reason Onset Date Comments POC 10/29/2024 Encounter Details Date Type Department Care Team (Late st Contact Info) Description 10/29/[address] [place] [address] Zohra Corley LPN POC Social History Tobacco Use Types Packs/Day Years Used Date Smoking Tobacco: Never Assessed Comments Unknown Sex and Gender Information Value Date Recorded Sex Assigned at Not on file Legal Sex Female 5:58 PM EST Gender Identity Not on file Sexual Orientation Not on file documented as of this encounter Miscellaneous Notes * Telephone Encounter - Zohra Corley LPN - 10/29/2024 4:[address] Kingsley office phoned requesting POC for patient's lithotripsy scheduled on 11/05/24. Patient had an abnormal EKG in office. BP 156/75. To [facility]er[facility] for follow up. Dr. Kingsley phone [phone] documented in this encounter Plan of Treatment Upcoming Encounters Date Type Department Care Team (Late st Contact Info) Description 03/17/2025 8:00 AM EDT Office Visit [facility] [address] [facility] [address] [place] [address] Pushpa Hawthorne, MILITARY TECHNOLOGY MANAGER-MARKETING EXECUTIVE [address] [facility] [address] [place] [address] documented as of this encounter Visit Diagnoses Not on filedocumented in this encounter
--- OUTSIDE RECORDS SUMMARY | 2024-11-05 09:57 | XMS_ITS | Clinical Summary ---
Author Organization [facility] Address [address] [place] [address] Phone Care Team Providers Care Processor Helper Name Role Phone Lilian Holden Kirkland DO Primary Care Provider [phone]- [phone] Agapito Kingsley MD Unavailable [phone] Allergies No known active allergies Medications amLODIPine (Norvasc) 5 mg tablet Take 1 tablet (5 mg) by mouth once daily. 12/13/2022 Active aspirin 81 mg chewable tablet Chew 1 tablet (81 mg) once daily. Active Premarin vaginal cream Insert into the vagina once daily. 01/06/2024 Active pantoprazole (ProtoNix) 40 mg EC tablet Take 1 tablet (40 mg) by mouth once daily in the morning. Take before meals. 10/21/2024 Active venlafaxine XR (Effexor-XR) 37.5 mg 24 hr capsule Take 1 capsule (37.5 mg) by mouth every other day. 10/21/2024 Active ferrous sulfate 325 (65 Fe) mg EC tablet Take 1 tablet by mouth once daily with breakfast. Do not crush, chew, or split. Active TURMERIC ORAL Take 2 capsules by mouth once daily. Active calcium carb/vitamin D3/vit K1 (SOFT CHEWS CALCIUM ORAL) Take 1 tablet by mouth once daily. Active Active Problems Problem Noted Date Diagnosed Date Pre-operative cardiovascular examination 025 Abnormal electrocardiogram (ECG) (EKG) Mild CAD 11/02/2024 Essential (primary) hypertension 11/02/2024 BMI 25.0-25.9,adult 11/02/2024 Encounters Date Type Department Care Team Description 11/04/2024 Telephone [place] [address] [facility] [address] [place] [address] Vicky Means RN Pre-op Clearance 11/02/2024 2:00 PM EDT Office Visit [address] [place] [address] Pushpa Hawthorne, BUSINESS ANALYST PROJECT MANAGER-CHIEF INNOVATION OFFICER Pre-operative cardiovascular examination (Primary Dx); Essential (primary) hypertension; Mild CAD; Abnormal electrocardiogram (ECG) (EKG); BMI 25.0-25.9,adult 11/02/2024 Travel 10/29/[address] [place] [address] Zohra Corley LPN POC from Last 3 Months Family History Medical History Relation Name Comments Prostate cancer Brother Heart disease Father Diabetes Mother Heart failure Mother Relation Name Status Comments Brother Father Mother Social History Tobacco Use Types Packs/Day Years [...] No / Unsure 11/02/2024 1:52 PM EDT Last Filed Vital Signs Vital Sign Reading [...] Mass Index 25.82 11/02/2024 2:02 PM EDT Plan of Treatment Upcoming Encounters Date Type Department Care Team (Late st Contact Info) Description 03/17/2025 8:00 AM EDT Office Visit [facility] [address] [facility] [address] [place] [address] Pushpa Hawthorne, BUSINESS ANALYST PROJECT MANAGER-CHIEF INNOVATION OFFICER [address] [place] [address] Health Maintenance Due Date Last Done Comments CT Colonography 1955 FIT-DNA (Cologuard) 1955 FIT 1955 Welcome to Medicare Visit 1955 Diabetes Screening 1973 Hepatitis C Screening 1973 RSV High Risk: (Elderly (60+) or Population) (1 - Risk 60-74 years 1-dose series) 2015 Pneumococcal Vaccine (2 of 2 - PPSV23, PCV20, or PCV21) 04/29/2021 03/04/2021 Mammogram 12/07/2023 12/06/2022, 07/0 11/2022, 12/05/2021, Additional history exists COVID-19 Vaccine ( season) 2024 03/19/2024, 03/19/2023, 02/27/2022, Additional history exists Lipid Panel 01/18/2025 01/19/2020 Sigmoidoscopy 01/12/2027 01/12/2022 Colonoscopy 01/13/2032 01/12/2022 Colorectal Cancer Screening 01/13/2032 DTaP/Tdap/Td Vaccines (2 - Td or Tdap) 05/26/2034 05/26/2024 Zoster Vaccines Completed 07/09/2019, 04/02/2019 Bone Density Scan Completed 11/22/2020 Irritable Bowel Syndrome Discontinued 01/12/2022 Influenza Vaccine Completed 03/19/2024, , 02/27/2022, Additional history exists HIB Vaccines Aged Out No longer eligi ble based on patient's age to complete this topic HPV Vaccines Aged Out No longer eligi ble based on patient's age to complete this topic Hepatitis A Vaccines Aged Out No long er eligible based on patient's age to complete this topic Hepatitis B Vaccines Aged Out No long er eligible based on patient's age to complete this topic IPV Vaccines Aged Out No longer eligi ble based on patient's age to complete this topic Meningococcal Vaccine Aged Out No jermaine liz eligible based on patient's age to complete this topic Rotavirus Vaccines Aged Out No longer eligible based on patient's age to complete this topic Procedures Procedure Name Priority Date/Time Associated Diagnosis Comments ECG 12-LEAD Routine 11/02/2024 2:00 PM EDT Pre-operative cardiovascular examination LIPID PANEL Routine 01/19/2020 9:02 AM EDT from Last 3 Months or Most Recently Relevant to Health Maintenance Results * ECG 12 Lead (11/02/2024 2:00 PM EDT) Narrative CPA - 11/03/2024 1:08 PM EDT Normal sinus rhythm, left axis deviation, septal infarct, age undetermined, nonspecific inferolateral T wave abnormality, cannot rule out ischemia, abnormal ECG us Pushpa Hawthorne BUSINESS ANALYST PROJECT MANAGER-CHIEF INNOVATION OFFICER ECG ORDERABLES Final Res ult [facility] * Lipid Panel (01/19/2020 9:02 AM EDT) [facility] Cholesterol 167 0 - 199 mg/dL [facility] Comment: . AGE DESIRABLE BORDERLINE HIGH HIGH 0-19 Y 0 - 169 170 - 199 >/= 200 20-24 Y 0 - 189 190 - 224 >/= 225 >24 Y 0 - 199 200 - 239 >/= 240 All ranges are based on fasting samples. Specific therapeutic targets will vary based on patient-specific cardiac risk. . Pediatric guidelines reference:Pediatrics 2011, 128(S5). Adult guidelines reference: NCEP ATPIII Guidelines, SHARRI 2001, 258:2486-97 . Venipuncture immediately after or during the administration of Metamizole may lead to falsely low results. Testing should be performed immediately prior to Metamizole dosing. HDL 51.0 mg/dL [facility] Comment: . AGE VERY LOW LOW NORMAL HIGH 0-19 Y < 35 < 40 40-45 ---- 20-24 Y ---- < 40 >45 ---- >24 Y ---- < 40 40-60 >60 . Cholesterol/HDL Ratio 3.3 [facility] Comment: REF VALUES DESIRABLE < 3.4 HIGH RISK > 5.0 LDL 86 0 - 99 mg/dL [facility] Comment: . NEAR BORD AGE DESIRABLE OPTIMAL HIGH HIGH VERY HIGH 0-19 Y 0 - 109 --- 110-129 >/= 130 ---- 20-24 Y 0 - 119 --- 120-159 >/= 160 ---- >24 Y 0 - 99 100-129 130-159 160-189 >/=190 . VLDL 30 0 - 40 mg/dL [facility] Triglycerides 149 0 - 149 mg/dL [facility] Comment: . AGE DESIRABLE BORDERLINE HIGH HIGH VERY HIGH 0 D-90 D 19 - 174 ---- ---- ---- 91 D- 9 Y 0 - 74 75 - 99 >/= 100 ---- 10-19 Y 0 - 89 90 - 129 >/= 130 ---- 20-24 Y 0 - 114 115 - 149 >/= 150 ---- >24 Y 0 - 149 150 - 199 200- 499 >/= 500 . Venipuncture immediately after or during the administration of Metamizole may lead to falsely low results. Testing should be performed immediately prior to Metamizole dosing. 01/19/2020 9:02 AM EDT 01/19/2020 5:42 PM EDT David Trent DO LAB BLOOD ORDERABLES Final Result [facility] from Last 3 Months or Most Recently Relevant to Health Maintenance Insurance [employer] MEDICARE [employer] MEDICARE Care Teams Processor Helper Relationship Specialty Start Date End Date Holden Quintana DO [address] [facility] [address] [place] [address] PCP - General Family Medicine 11/02/24 Agapito Kingsley MD [address] [facility] [place] [address] Referring Physician Urology 11/02/24
--- OUTSIDE RECORDS SUMMARY | 2024-11-05 09:57 | XMS_ITS | Encounter Summary ---
Author Organization [facility] Address [address] [place] [address] Care Team Providers Care Emergency Veterinarian Name Role Phone Holden Quintana DO Primary Care Provider [phone] Source Comments In the event this information is protected by the Federal Confidentiality of Alcohol and Drug AbusePatient Records regulations: The Federal rules restrict any use of the information to criminally investigate or prosecute any alcohol or drug abuse patient.[facility] Encounter Details Date Type Department Care Team (Late st Contact Info) Description 06/14/2021 Patient [place] [address] Provider, Ccf Financial Clearance Social History Tobacco Use Types Packs/Day Years Used Date Smoking Tobacco: Never Smokeless Tobacco: Never Area Deprivation Index Answer Date Vicente rded National Score (1-100), lower number is lower ri sk Not on file 02/14/2021 State Score (1-10), lower number is lower risk N ot on file 02/14/2021 Data from: https://www.neighborhoodatlas.medicine.[facility].edu/. Last address used for calculation Not on [...] on filedocumented in this encounter Care Teams Emergency Veterinarian Relationship Specialty Start Date End Date Holden Quintana DO [address] [place] [address] PCP - General 04/21/01 documented as of this encounter
--- OUTSIDE RECORDS SUMMARY | 2024-11-05 09:57 | XMS_ITS | Encounter Summary ---
Author Organization [facility] Address [address] [place] [address] Care Team Providers Care Agricultural Chemicals Inspector Name Role Phone Holden Quintana DO Primary Care Provider [phone]- [phone] Source Comments In the event this information is protected by the Federal Confidentiality of Alcohol and Drug AbusePatient Records regulations: The Federal rules restrict any use of the information to criminally investigate or prosecute any alcohol or drug abuse patient.[facility] Reason for Visit * Reason Comments Radiology XR Encounter Details Date Type Department Care Team (Late st Contact Info) Description 06/21/2021 Radiology Radiology [address] [place] [address] Ashley Cleveland, RT(R) Radiology XR Social History Tobacco Use Types Packs/Day Years Used Date Smoking Tobacco: Never Smokeless Tobacco: Never Area Deprivation Index Answer Date Vicente rded National Score (1-100), lower number is lower ri sk Not on file 02/14/2021 State Score (1-10), lower number is lower risk N ot on file 02/14/2021 Data from: https://www.neighborhoodatlas.medicine.[facility].edu/. Last address used for calculation Not [...] on filedocumented in this encounter Care Teams Agricultural Chemicals Inspector Relationship Specialty Start Date End Date Holden Quintana DO [address] [place] [address] PCP - General 04/21/01 documented as of this encounter
--- OUTSIDE RECORDS SUMMARY | 2024-11-05 09:57 | XMS_ITS | Clinical Summary ---
Author Organization [facility] Address [address] [place] [address] Care Team Providers Care Front End Alignment Specialist Name Role Phone Holden Quintana Primary Care Provider [phone] Allergies No known active allergies Medications amLODIPine [...] Department Care Team Description 09/03/2024 Telephone [facility] [address] [place] [address] Magy Fierro DO from Last 3 Months [...] Care Team (Late st Contact Info) Description 11/17/2024 8:45 AM EDT Office Visit [facility] [address] [place] [address] Errol Vaughan, DO [address] [place] [address] 12/15/2024 11:15 AM EDT Office Visit [facility] [address] [place] [address] Magy Fierro DO [address] [place] [address] Health Maintenance Due Date Last Done Comments CT Colonography 1955 FIT-DNA 1955 FIT 1955 FOBT 1955 Sigmoidoscopy 1955 Pneumococcal Vaccine: 65+ Ye ars (2 of 2 - PPSV23) 03/04/2022 03/04/2021 Mammogram 12/07/2023 12/06/2022, 070 10/2021, 06/05/2021, Additional history exists Colonoscopy 01/13/2032 [...] Alexey Villatoro M.D.12/06/2022 9:09 AM Dictation Location: [facility] Transcribed By: [facility] 12/06/22908 Dictated By: Alexey Villatoro DO 12/06/22 09 Signed By: <Electronically signed by Alexey Villatoro DO in OV> 12/06/22 0909 Narrative 12/06/2022 12:33 PM EDT [place] [address] Mammography Report Signed Patient: Mirella Roblero MR#: [id number] : 1955 Acct:[id number] Age/Sex: 67 / F ADM Date: 12/06/22 Loc: [place] Room: Type: [facility] Attending Dr: Magy Fierro DO Copies [...] Procedure Note Radiology, Radiologist, MD - 12/06/2022 [facility] Main [place] [address] [place] [address] Mammography Report Signed Patient: Mirella Roblero AMR#: [id number] : 5Acct:[id number] Age/Sex: 67 / FADM Date: 12/06/22 Loc: [place] Room:Type: [facility] Attending Dr: Magy Fierro DO Copies [...] Alexey Villatoro M.D.12/06/2022 9:09 AM Dictation Location: S01 Transcribed By: [facility] 12/06/22908 Dictated By: Alexey Villatoro DO 12/06/22901 Signed By: <Electronically signed by Alexey Villatoro DO in OV> 12/06/22908 Magy Fierro DO IMG BI PROCEDURES Final Res ult from Last 3 Months or Most Recently Relevant to Health Maintenance Insurance [employer] MEDICARE Care Teams Front End Alignment Specialist Relationship Specialty Start Date End Date Holden Quintana [address] [place] [address] PCP - General Family Medicine 11/06/22
--- OUTSIDE RECORDS SUMMARY | 2024-11-05 09:57 | XMS_ITS | Encounter Summary ---
Author Organization [facility] Address [address] [place] [address] Care Team Providers Care Svp Research And Strategic Analysis Name Role Phone Holden Quintana DO Primary Care Provider [phone] Source Comments In the event this information is protected by the Federal Confidentiality of Alcohol and Drug AbusePatient Records regulations: The Federal rules restrict any use of the information to criminally investigate or prosecute any alcohol or drug abuse patient.[facility] Encounter Details Date Type Department Care Team (Late st Contact Info) Description 04/12/2021 Patient Msg [facility] [place] [address] Provider, Ccf SCHEDULE INJECTION Social History Tobacco Use Types Packs/Day Years Used Date Smoking Tobacco: Never Smokeless Tobacco: Never Area Deprivation Index Answer Date Vicente rded National Score (1-100), lower number is lower ri sk Not on file 02/14/2021 State Score (1-10), lower number is lower risk N ot on file 02/14/2021 Data from: https://www.neighborhoodatlas.medicine.[facility].edu/. Last address used for calculation Not on [...] on filedocumented in this encounter Care Teams Svp Research And Strategic Analysis Relationship Specialty Start Date End Date Holden Quintana DO [address] [place] [address] PCP - General 04/21/01 documented as of this encounter
--- OUTSIDE RECORDS SUMMARY | 2024-11-05 09:57 | XMS_ITS | Clinical Summary ---
Author Organization [facility] Address [address] [place], [place] [address] Care Team Providers Care Supervisor Fiberglass Boat Assembly Name Role Phone Holden Quintana DO Primary Care Provider [phone] Allergies No known active allergies Medications conjugated [...] N ot on file 06/29/2022 Data from: https://www.neighborhoodatlas.medicine.[facility].edu/. Last address used for calculation [address] [facility] 06/29/2022 Comments No Sex and Gender [...] EDT Narrative 01/12/2022 10:46 AM EDT [facility] Gastrointestinal Endoscopy Patient Name: Mirella Roblero Procedure [...] bowel preparation was evaluated using the BBPS (Fitzhugh Bowel Preparation Scale) with scores of: Right [...] the patient. Procedure Code(s): --- Professional --- 69699, Colonoscopy, flexible; with biopsy, single or multiple Diagnosis Code(s): --- Professional --- K63.5, Polyp of colon K64.1, Second degree hemorrhoids K59.00, Constipation, unspecified CPT copyright 2019 [employer]. All rights reserved. The codes documented in this report are preliminary and upon assistant nurse manager review may be revised to meet current compliance requirements. Attending Participation: I personally performed the entire procedure. Scope In: 10:25:10 AM Scope Out: 10:41:07 AM MD Derick Beltrán MD 01/12/2022 10:44:05 AM This report has been signed electronically by Derick Lin MD Number of Addenda: 0 Note Initiated On: 01/12/2022 10:11 AM Estimated Blood Loss: Estimated blood loss was minimal. us Dina Pack MANAGER FLORAL.LASTEX OPERATOR DIGESTIVE DISEASE Final Res ult from Last 3 Months or Most Recently Relevant to Health Maintenance Insurance [facility] MEDICARE ADVANTAGE PPO Care Teams Supervisor Fiberglass Boat Assembly Relationship Specialty Start Date End Date Holden Quintana DO [address] [place] [address] PCP - General 04/21/01
--- OUTSIDE RECORDS SUMMARY | 2024-11-05 09:57 | XMS_ITS | Encounter Summary ---
Author Organization [facility] Address [address] [place] [address] Care Team Providers Care Monitoring Engineer Name Role Phone Holden Quintana DO Primary Care Provider [phone]- [phone] Source Comments In the event this information is protected by the Federal Confidentiality of Alcohol and Drug AbusePatient Records regulations: The Federal rules restrict any use of the information to criminally investigate or prosecute any alcohol or drug abuse patient.[facility] Encounter Details Date Type Department Care Team (Late st Contact Info) Description 01/05/2022 GI Preprocedure Call Ambulatory Surgery [address] [place] [address] [place] [address] [place] [address] Social History Tobacco Use Types Packs/Day Years Used Date Smoking Tobacco: Never Smokeless Tobacco: Never Area Deprivation Index Answer Date Vicente rded National Score (1-100), lower number is lower ri sk 54 10/25/2021 State Score (1-10), lower number is lower risk N ot on file 10/25/2021 Data from: https://www.neighborhoodatlas.medicine.[facility].edu/. Last address used for calculation [address] [facility] 10/25/2021 Comments No Sex and Gender Information Value Date Recorded Sex Assigned at Not on file Legal Sex Female 9:47 AM EST Gender Identity Not on file Sexual Orientation Not on file documented as of this encounter Plan of Treatment Not on file documented as of this encounter Visit Diagnoses Not on filedocumented in this encounter Care Teams Monitoring Engineer Relationship Specialty Start Date End Date Holden Quintana DO [address] [place] [address] PCP - General 04/21/01 documented as of this encounter
--- NOTE | 2024-11-05 10:00 | XR_ITS ---
The [address] [address] Patient Name: DANIEL CHRISTY MRN: [id number] date: 1955 Sex: F Assigned Patient Location: [facility] Current Patient Location: [facility] Accession/Order Number: [id number] Exam Date: 11/05/2024 10:39 Report Date: 11/05/2024 10:42 At the request of: KATHRYN PENDLETON MD Procedure: XR abdomen 1V SINGLE VIEW ABDOMEN COMPARISON: None CLINICAL DATA : Presurgical planning. History of kidney stones. Supine view of the abdomen and pelvis was obtained. There is air and stool throughout the colon. There is no dilated small bowel. Both kidneys are obscured. There is a left upper quadrant calcification that may be a renal stone measuring 6 to 7 mm in size. No additional suspect renal calculi are identified. There are pelvic phleboliths. No soft tissue masses are seen. There is levoscoliotic curvature and degenerative change at the spine. XR/XR abdomen 1V IMPRESSION: MODERATE COLONIC STOOL. SUSPECTED LEFT NEPHROLITHIASIS. Impression dictated by: Lucia Davey M.D. 11/05/2024 10:42 AM Dictation Location: [place] [address] Electronically authenticated by: [id number] Y Date: 11/05/2024 10:42
[2024-11-05] MEDS: LACTATED RINGER'S SOLUTION 1,000 ML 50 ML IV (10:38)
[2024-11-05] MEDS: CEFAZOLIN SODIUM 2 GM/50 ML D5W PREMIX IV (12:37)
--- NOTE | 2024-11-05 13:27 | PM.URSON ---
Urology Surgery Operative Note Operative Note Procedure Date: 11/05/24 Time Out Performed: yes Pre-op Diagnosis: Left nephrolithiasis Post-op Diagnosis: same as pre-op Procedures performed: 1. Left ESWL. Anesthesia: General-LMA Primary Surgeon: Agapito Kingsley Complications: None Estimated blood loss (mL): 0 Findings: For urinary hard 1 cm left renal calculus Specimens: None Drains: None none Indications for Procedures: This lady has a 1 cm nonobstructing left renal calculus. She now presents for ESWL. She has signed an informed consent after risks were explained. Some of these risks include bleeding, perinephric hematoma, infection and anesthesia to name a few. Detailed description of Procedure: The patient was brought to the Operating Room and placed on Siemens electromagnetic lithotripsy treatment table in the supine position. SCDs were placed on their lower extremities and turned on and functioning during the entire case. Timeout was done by all parties in the room. We all agreed upon the patient's identification and the planned procedures for this patient. General Anesthesia was then administered via LMA. Treatment head was then brought to the patient's correct side. While using flourscopy the stone was identified and lined up into the crosshairs. We then began applying shocks. We started applying shocks at power level 2.0 and increased to a maximum power level of 3.5. Intermittent fluoroscopy revealed that the stone was extremely slow to fragment. It was not until 2500 shocks that we began to see fragmentation. We applied a total of 3000 shocks. The last fluoroscopic image revealed persistent solid stone although there was a fair amount of fragmentation. The stone was changing shape towards a triangular shape whereas it started in an oval shape. The patient was then transferred [facility] a [facility] and wheeled to PACU in stable condition. The plan is that we will check a KUB x-ray in a week or 2 and if there is in fact remaining stone we will then bring her back for a second ESWL treatment.
[2024-11-05] MEDS: HYDROMORPHONE HCL 0.5 MG/0.5 ML SYRINGE IV ×2 (13:51→14:00)
[2024-11-05] MEDS: KETOROLAC TROMETHAMINE 30 MG/ML VIAL 15 MG IVP (14:14)
== END 2024-11-05 15:28 | disposition home or self-care (01) ==
LOC: SURGOUT 09:55
PROVIDERS: PCP Family Medicine; Visit Provider Urology
PROC: (CPT 50590; principal; 2024-11-05 11:20)
DX: N20.0 Calculus of kidney (principal); I10 Essential (primary) hypertension; K21.9 Gastro-esophageal reflux disease without esophagitis; Z79.01 Long term (current) use of anticoagulants; Z90.710 Acquired absence of both cervix and uterus; Z90.49 Acquired absence of other specified parts of digestive tract
CPT/HCPCS: 50590; 36415; 74018; J0690; J1171; J1885

== ENCOUNTER 2024-11-13 11:33 | Outpatient (OUT) | payer MEDICARE, SELFPAY ==
--- OUTSIDE RECORDS SUMMARY | 2024-11-02 14:00 | XMS_ITS | Encounter Summary ---
Author Organization [facility] Address [address] [place] [address] Phone Care Team Providers Care Front Maker Name Role Phone Holden Quintana DO Primary Care Provider [phone] Agapito Kingsley MD Unavailable [phone] Reason for Referral * Consultation (Routine) - Authorized Specialty Diagnoses / Procedures Referred By Contac t Referred To Contact Cardiology Diagnoses Mild CAD Procedures Follow Up In Cardiology Pushpa Hawthorne APRN-CNP [address] [address] Phone: tel: fax: Referral ID Status Reason Start Date Expiration Date V isits Requested Visits Authorized [id number] Authorized 11/02/2024 11/02/2025 1 1 * Cardiovascular (Routine) - Authorized Specialty Diagnoses / Procedures Referred By Contkita t Referred To Contact Diagnoses Pre-operative cardiovascular examination Procedures ECG 12 Lead Pushpa Hawthorne APRN-CNP 703 [facility] [address] [address] Phone: tel: fax: Referral ID Status Reason Start Date Expiration Date V isits Requested Visits Authorized [id number] Authorized 11/02/2024 11/02/2025 1 1 Reason for Visit * Reason Comments New Patient Visit Pre-op Clearance Kingsley-lithotripsy * Cardiovascular (Routine) - Authorized Specialty Diagnoses / Procedures Referred By Contkita t Referred To Contact Diagnoses Pre-operative cardiovascular examination Procedures ECG 12 Lead Pushpa Hawthorne ACCOUNT MANAGER TRAINEE-ENGINEERING AND DEVELOPMENT DIRECTOR 703 [facility] [address] [place] [address] Phone: tel: fax: Referral ID Status Reason Start Date Expiration Date V isits Requested Visits Authorized [id number] Authorized 11/02/2024 11/02/2025 1 1 Encounter Details Date Type Department Care Team (Latest Contact Info) Description 11/02/2024 2:00 PM EDT Office Visit [address] [place] [address] Pushpa Hawthorne ACCOUNT MANAGER TRAINEE-ENGINEERING AND DEVELOPMENT DIRECTOR 709 [facility] [address] [place] [address] Pre-operative cardiovascular examination (Primary Dx); Essential (primary) hypertension; Mild CAD; Abnormal electrocardiogram (ECG) (EKG); BMI 25.0-25.9,adult Social History Tobacco Use Types Packs/Day Years Used Date Smoking Tobacco: Never Smokeless Tobacco: Never Alcohol Use Standard Drinks/Week Comments Yes 0 (1 standard drink = 0.6 oz pur e alcohol) seldom Comments Unknown Sex and Gender Information Value Date Recorded Sex Assigned at Not on file Legal Sex Female 5:58 PM EST Gender Identity Not on file Sexual Orientation Not on file COVID-19 Exposure Response Date Recorded In the last 10 days, have yo u been in contact with someone who was confirmed or suspected to have Coronavirus/COVID-19? No / Unsure 11/02/2024 1:52 PM EDT documented as of this encounter Last Filed Vital Signs Vital Sign Reading Time Taken Comments Blood Pressure 136/82 11/02/2024 2:04 PM EDT Pulse 69 11/02/2024 2:04 PM EDT Temperature - - Respiratory Rate - - Oxygen Saturation - - Inhaled Oxygen Concentration - - Weight 68.2 kg (150 lb 6.4 oz) 11/02/2024 2:02 P M EDT Height 162.6 cm (5' 4 ) 11/02/2024 2:02 PM EDT Body Mass Index 25.82 11/02/2024 2:02 PM EDT documented in this encounter Patient Instructions * Patient Instructions* HEENA Clark - 11/02/2024 2:00 PM EDT Please bring all medicines, vitamins, and herbal supplements with you when you come to the office. Prescriptions will not be filled unless you are compliant with your follow up appointments or have a follow up appointment scheduled as per instruction of your physician. Refills should be requested at the time of your visit. EKG done in office today PLAN: Through informed decision making process incorporating patients unique circumstances, the followingtreatment plan will be initiated: 1. Prescription drug management of cardiovascular medication for efficacy, adherence to treatment, side effect assessment and polypharmacy. Current treatment clinically warranted and to continue without modifications. 2. No prohibitive cardiovascular risk to proceed with surgical intervention. Ok to interrupt ASA. 3. Return for follow-up; in the interim, contact the office if new symptoms arise. WINDOW UNIT AIR CONDITIONING MECHANIC 4 months documented in this encounter Progress Notes * HEENA Clark - 11/02/2024 2:00 PM EDT New Patient Visit and Pre-op Clearance (Kingsley-lithotripsy 11/05/24), abnormal POC ECG. History Of Present Illness: Mirella Rolbero is a 69 y.o. female presenting to the office today reporting an abnormal EKG taken part of preop clearance prior to lithotripsy planned for later this week. Presents to the officeambulatory with steady gait, is accompanied by her . EKG from last week reviewed showing LVH, possible septal infarct. On review EKG is consistent with June 18, 2018 EKG showing LVH, age undetermined septal infarct. Repeat EKG in office performed today is normal sinus rhythm, septal infarct, age undetermined. There are no significant EKG changes that would warrant ischemic evaluation or prohibit surgical procedure. She is otherwise requesting cardiac risk stratification prior to lithotripsy. Surgeon: Dr. Kingsley Planned date: November 05, 2021. Prior cardiovascular history: June 2018 cardiac catheterization: Mid LAD 40% with nonsignificant IFR. No residual coronary artery disease. June 2018 TTE LVEF 55-60%. No significant valvular heart disease. No documented history of dysrhythmia. Patient presents to the office today with activity level > 4 METS. Daily activity includes: Gardening, housework. Total DASI: 44.7 METS: 8.23 EKG in office: Normal sinus rhythm, possible age undetermined septal infarct. No ischemia. ACC/AHA guidelines: 1. Major clinical markers: -Acute coronary syndrome or VA within 30 days: No -Decompensated heart failure: No -Significant arrhythmia: No -Severe valvular heart disease: No 2. Intermediate clinical markers -History of ischemic heart disease (prior VA, current chest pain secondary to ischemia, use of nitrates or EKG changes): No -Compensated/prior heart failure: No -Diabetes requiring insulin: No -Renal insufficiency with creatinine greater than 2: No 3. Minor clinical markers: -Age greater than or equal to 70: No -Abnormal EKG: Yes -Rhythm other than sinus rhythm: No -Low functional capacity: No -Prior CVA: No -Uncontrolled hypertension: No Surgery specific risk: Low risk lithotripsy According to ACC/AHA guidelines, a patient with daily activity greater than 4 METS with only minor clinical markers may proceed with surgical procedure without any additional cardiovascular ischemic workup. JONATHAN Revised Cardiac Risk Index: Very low risk 0.4% mace Concomitant medication review: No contraindication to interrupt aspirin Past Medical History: She has no past medical history on file. Past Surgical History: She has a past surgical history that includes Hysterectomy; Cholecystectomy; Cataract extraction, bilateral; Carpal tunnel release (Bilateral); and Colonoscopy. Social History: She reports that she has never smoked. She has never used smokeless tobacco. She reports current alcohol use. She reports that she does not use drugs. Family History: Family History[1] Allergies: Patient has no known allergies. Outpatient Medications: Current Outpatient Medications Medication Instructions amLODIPine (NORVASC) 5 mg, Daily aspirin 81 mg, Daily RT calcium carb/vitamin D3/vit K1 (SOFT CHEWS CALCIUM ORAL) 1 tablet, Daily ferrous sulfate 325 mg, Daily with breakfast pantoprazole (PROTONIX) 40 mg, Daily before breakfast Premarin vaginal cream Daily TURMERIC ORAL 2 capsules, Daily venlafaxine XR (EFFEXOR-XR) 37.5 mg, Every other day Last Recorded Vitals: Vitals: 11/02/24 1402 11/02/24 1404 BP: 138/80 136/82 BP Location: Left arm Right arm Patient Position: Sitting Sitting Pulse: 69 Weight: 68.2 kg (150 lb 6.4 oz) Height: 1.626 m (5' 4 ) Review of Systems Cardiovascular: Negative for chest pain, dyspnea on exertion, irregular heartbeat, leg swelling, near-syncope, orthopnea, palpitations, paroxysmal nocturnal dyspnea and syncope. Physical Exam Vitals and nursing note reviewed. HENT: Head: Normocephalic. Cardiovascular: Rate and Rhythm: Normal rate and regular rhythm. Heart sounds: Normal heart sounds. Pulmonary: Effort: Pulmonary effort is normal. Breath sounds: Normal breath sounds. Abdominal: Palpations: Abdomen is soft. Musculoskeletal: Right lower leg: No edema. Left lower leg: No edema. Skin: General: Skin is warm and dry. Neurological: General: No focal deficit present. Mental Status: She is alert. Psychiatric: Mood and Affect: Mood normal. Behavior: Behavior normal. Assessment: A 69-year-old female with mild/moderate mid LAD disease insignificant by IFR and normal LVEF (June 2018) presents with daily activity greater than 4 METS without concerning symptoms. Baseline abnormal EKG with mild LVH, age undetermined septal infarct (2018). According to ACC/AHA guidelines, no indication for additional ischemic workup at this time. Plan: In light of prior cardiovascular testing and daily functional capacity at 8 METS, there are no prohibitive cardiovascular risk to proceed with much-needed procedure. She will return back to the clinic in 3 months (she has CAD and and should be getting lipid profilechecked, she was on statin previously but presents today off of medication) to address primary prevention. Pushpa Hawthorne MSN, ACCOUNT MANAGER TRAINEE-ENGINEERING AND DEVELOPMENT DIRECTOR, PMHNP-BC [facility] [place], [place] Please excuse any errors in grammar or translation related to this dictation. Voice recognition software was utilized to prepare this document. [1] Family History Problem Relation Name Age of Onset Heart failure Mother Diabetes Mother Heart disease Father Prostate cancer Brother documented in this encounter Plan of Treatment Upcoming Encounters Date Type Department Care Team (Late st Contact Info) Description 03/17/2025 8:00 AM EDT Office Visit [facility] [address] [place] [phone] Pushpa Hawthorne APRN-CNP [address] [place] [address] documented as of this encounter Procedures Procedure Name Priority Date/Time Associated Diagnosis Comments ECG 12-LEAD Routine 11/02/2024 2:00 PM EDT Pre-operative cardiovascular examination documented in this encounter Results * ECG 12 Lead (11/02/2024 2:00 PM EDT) Narrative CPACS - 11/03/2024 1:08 PM EDT Normal sinus rhythm, left axis deviation, septal infarct, age undetermined, nonspecific inferolateral T wave abnormality, cannot rule out ischemia, abnormal ECG us Pushpa NAIK ECG ORDERABLES Final Res ult CPA documented in this encounter Visit Diagnoses Diagnosis Pre-operative cardiovascular examination- Primary Essential (primary) hypertension Unspecified essential hypertension Mild CAD Abnormal electrocardiogram (ECG) (EKG) BMI 25.0-25.9,adult documented in this encounter Additional Health Concerns Assessment Noted Time A fall risk assessment has been complete d for the patient 11/02/2024 2:02 PM EDT documented as of this encounter Care Teams Front Maker Relationship Specialty Start Date End Date Holden Quintana DO [address]25 [facility] [place] [address] PCP - General Family Medicine 11/02/24 Agapito Kingsley MD [address] [facility] [place] [address] Referring Physician Urology 11/02/24 documented as of this encounter
--- OUTSIDE RECORDS SUMMARY | 2024-11-13 11:35 | XMS_ITS | Encounter Summary ---
Author Organization [facility] Address [address] [place] [address] Care Team Providers Care Nail Galvanizer Name Role Phone Holden Quintana DO Primary Care Provider [phone]- [phone] Source Comments In the event this information is protected by the Federal Confidentiality of Alcohol and Drug AbusePatient Records regulations: The Federal rules restrict any use of the information to criminally investigate or prosecute any alcohol or drug abuse patient.[facility] Encounter Details Date Type Department Care Team (Late st Contact Info) Description 01/05/2022 GI Preprocedure Call Ambulatory Surgery [address] [place] [address] [place] [address] [place] [address] Social History Tobacco Use Types Packs/Day Years Used Date Smoking Tobacco: Never Smokeless Tobacco: Never Area Deprivation Index Answer Date Vicente rded National Score (1-100), lower number is lower ri sk 54 10/25/2021 State Score (1-10), lower number is lower risk N ot on file 10/25/2021 Data from: https://www.neighborhoodatlas.medicine.[facility].edu/. Last address used for calculation [address] [facility] 10/25/2021 Comments No Sex and Gender Information Value Date Recorded Sex Assigned at Not on file Legal Sex Female 9:47 AM EST Gender Identity Not on file Sexual Orientation Not on file documented as of this encounter Plan of Treatment Not on file documented as of this encounter Visit Diagnoses Not on filedocumented in this encounter Care Teams Nail Galvanizer Relationship Specialty Start Date End Date Holden Quintana DO [address] [place] [address] PCP - General 04/21/01 documented as of this encounter
--- OUTSIDE RECORDS SUMMARY | 2024-11-13 11:35 | XMS_ITS | Encounter Summary ---
Author Organization [facility] Address [address] [place] [address] Care Team Providers Care Roll Icer Machine Name Role Phone Holden Quintana Primary Care Provider [phone] Reason for Visit * Reason Comments Med Refill Encounter Details Date Type Department Care Team (Late Contact Info) Description 11/18/2022 Refill [facility] [address] [place] [address] Magy Fierro, DO [address] [facility] [address] [place] [address] Social History Tobacco Use Types Packs/Day Years Used Date Smoking Tobacco: Never Assessed Comments Unknown Sex and Gender Information Value Date Recorded Sex Assigned at Not on file Legal Sex Female 6:56 PM EDT Gender Identity Not on file Sexual Orientation Not on file documented as of this encounter Plan of Treatment Upcoming Encounters Date Type Department Care Team ([facility] Contact Info) Description 11/17/2024 8:45 AM EDT Office Visit [facility] [address] [place] [address] Errol Vaughan, DO [address] [place] [address] 12/15/2024 11:15 AM EDT Office Visit [facility] [address] [place] [address] Magy Fierro, DO [address] [place] [address] documented as of this encounter Visit Diagnoses Not on filedocumented in this encounter Care Teams Roll Icer Machine Relationship Specialty Start Date End Date Holden Quintana [address] [facility] [place] [address] PCP - General Family Medicine 11/06/22 documented as of this encounter
--- OUTSIDE RECORDS SUMMARY | 2024-11-13 11:35 | XMS_ITS | Encounter Summary ---
Author Organization [facility] Address [address] [facility] [place] [address] Care Team Providers Care Audio Experience Expert Name Role Phone Holden Quintana Primary Care Provider [phone] Encounter Details Date Type Department Care Team (Late Contact Info) Description 12/06/2022 External Result Encounter [facility] External Department Unsolicited Magy Fierro, DO [address] [place] [address] Social History Tobacco Use Types Packs/Day Years [...] ORTHOAO [address] [place] [address] Errol Vaughan, DO [address] [facility] [place] [address] 12/15/2024 11:15 AM EDT Office Visit [facility] [address] [place] [address] Magy Fierro, DO [address] [place] [address] documented as of this encounter [...] Alexey Villatoro M.D.12/06/2022 9:09 AM Dictation Location: [facility] Transcribed By: [facility] 12/06/22 09 Dictated By: Alexey Villatoro DO 12/06/22 0902 Signed By: <Electronically signed by Alexey Villatoro DO in OV> 12/06/22 0909 Narrative 12/06/2022 12:33 PM EDT [facility] [place] [address] Mammography Report Signed Patient: Mirella Roblero MR#: [id number] : 1955 Acct:[id number] Age/Sex: 67 / F ADM Date: 12/06/22 Loc: [place] Room: Type: [facility] Attending Dr: Magy Fierro DO Copies [...] Procedure Note Radiology, Radiologist, MD - 12/06/2022 [facility] Main [place] [address] [place] [address] Mammography Report Signed Patient: Mirella Roblero AMR#: [id number] : [id number]:[id number] Age/Sex: 67 / FADM Date: 12/06/22 Loc: [place] Room:Type: [facility] Attending Dr: Magy Fierro DO Copies [...] Alexey Villatoro M.D.12/06/2022 9:09 AM Dictation Location: [facility] Transcribed By: TEN 12/06/22 09 Dictated By: Alexey Villatoro DO 12/06/22 09 Signed By: <Electronically signed by Alexey Villatoro DO in OV> 12/06/22 0909 us Magy Fierro DO IMG BI PROCEDURES Final Res ult documented in this encounter Visit Diagnoses Not on filedocumented in this encounter Care Teams Audio Experience Expert Relationship Specialty Start Date End Date Holden Quintana [address] [place] [address] PCP - General Family Medicine 11/06/22 documented as of this encounter
--- OUTSIDE RECORDS SUMMARY | 2024-11-13 11:35 | XMS_ITS | Clinical Summary ---
Author Organization [facility] Address [address] [place] [address] Phone Care Team Providers Care Supervisor Malt House Name Role Phone Lilian Holden Kirkland DO Primary Care Provider [phone] Agapito Kingsley MD Unavailable [phone] Allergies No known active allergies Medications amLODIPine [...] Type Department Care Team Description 11/04/[address]24 [address] [place] [id number] [facility] [address] [place] [address] Vicky Means RN Pre-op Clearance 11/02/2024 2:00 PM EDT Office Visit [address] [place] [address] Pushpa Hawthorne, CHIEF INVESTMENT OFFICER-DEALERSHIP MANAGER Pre-operative cardiovascular examination (Primary Dx); Essential (primary) hypertension; Mild CAD; Abnormal electrocardiogram (ECG) (EKG); BMI 25.0-25.9,adult 11/02/2024 Travel 10/29/[address] [place] [address] Zohra Corley LPN POC from [...] Description 03/17/2025 8:00 AM EDT Office Visit [facility] [address] [facility] [address] [place] [address] Pushpa Hawthorne, CHIEF INVESTMENT OFFICER-DEALERSHIP MANAGER [address] [place] [address] Health Maintenance Due Date Last Done Comments [...] out ischemia, abnormal ECG us Pushpa Hawthorne CHIEF INVESTMENT OFFICER-DEALERSHIP MANAGER ECG ORDERABLES Final Res ult [facility] * Lipid Panel (01/19/2020 9:02 AM EDT) [facility] Cholesterol 167 0 - 199 mg/dL [facility] Comment: . AGE DESIRABLE BORDERLINE HIGH [...] prior to Metamizole dosing. HDL 51.0 mg/dL [facility] Comment: . AGE VERY LOW LOW NORMAL HIGH 0-19 Y < 35 < 40 40-45 ---- 20-24 Y ---- < 40 >45 ---- >24 Y ---- < 40 40-60 >60 . Cholesterol/HDL Ratio 3.3 [facility] Comment: REF VALUES DESIRABLE < 3.4 HIGH RISK > 5.0 LDL 86 0 - 99 mg/dL [facility] Comment: . NEAR BORD AGE DESIRABLE OPTIMAL HIGH HIGH VERY HIGH 0-19 Y 0 - 109 --- 110-129 >/= 130 ---- 20-24 Y 0 - 119 --- 120-159 >/= 160 ---- >24 Y 0 - 99 100-129 130-159 160-189 >/=190 . VLDL 30 0 - 40 mg/dL [facility] Triglycerides 149 0 - 149 mg/dL [facility] Comment: . AGE DESIRABLE BORDERLINE HIGH [...] Trent DO LAB BLOOD ORDERABLES Final Result [facility] from Last 3 Months or Most Recently Relevant to Health Maintenance Insurance [employer] MEDICARE [employer] MEDICARE Care Teams Supervisor Malt House Relationship Specialty Start Date End Date Holden Quintana DO [address] [facility] [place] [address] PCP - General Family Medicine 11/02/24 Agapito Kingsley MD [address] [facility] [place] [address] Referring Physician Urology 11/02/24
--- OUTSIDE RECORDS SUMMARY | 2024-11-13 11:35 | XMS_ITS | Encounter Summary ---
Author Organization [facility] Address [address] [place] [address] Phone Care Team Providers Care University Professor Name Role Phone Holden Quintana DO Primary Care Provider [phone] Agapito Kingsley MD Unavailable [phone] Reason for Visit * Reason Onset Date Comments Pre-op Clearance 11/04/2024 Encounter Details Date Type Department Care Team (Late st Contact Info) Description 11/04/[address] [address] Vicky Means RN Pre-op Clearance [...] Miscellaneous Notes * Telephone Encounter - Vicky Means RN - 11/04/2024 9:06 AM EDT Laura from Dr Kingsley office phones requesting cardiac clearance for pt. Pt was see by Pushpa Guillen NP on Saturday. Clearance addressed in note. Note printed and faxed [phone] documented in this encounter Plan of Treatment Upcoming Encounters Date Type Department Care Team (Late st Contact Info) Description 03/17/2025 8:00 AM EDT Office Visit [facility] [address] [facility] [address] [place] [address] Pushpa Hawthorne, TIMBER ROBBER-MOBILE APPLICATION DEVELOPER [address] [facility] [address] [place] [address] documented as of this encounter Visit Diagnoses Not on filedocumented in this encounter Additional Health Concerns Assessment Noted Time A fall risk assessment has been complete d for the patient 11/02/2024 2:02 PM EDT documented as of this encounter Care Teams University Professor Relationship Specialty Start Date End Date Holden Quintana DO [address] [facility] [place] [address] PCP - General Family Medicine 11/02/24 Agapito Kingsley MD [address] [facility] [place] [address] Referring Physician Urology 11/02/24 documented as of this encounter
--- OUTSIDE RECORDS SUMMARY | 2024-11-13 11:35 | XMS_ITS | Encounter Summary ---
Author Organization [facility] Address [address] [place] [address] Phone Care Team Providers Care Utility Clerk Name Role Phone Holden Quintana DO Primary Care Provider [phone] Agapito Kingsley MD Unavailable [phone] Encounter Details Date Type Department Care Team [...] Description 03/17/2025 8:00 AM EDT Office Visit [facility] [address] [address] Pushpa Hawthorne, CHEESEMAKER-FILLER WIPER [address] [facility] 2, [facility] [address] [place] [address] documented as of this encounter Visit Diagnoses Not on filedocumented in this encounter Additional Health Concerns Assessment Noted Time A fall risk assessment has been complete d for the patient 11/02/2024 2:02 PM EDT documented as of this encounter Care Teams Utility Clerk Relationship Specialty Start Date End Date Holden Quintana DO [address] [facility] [place] [address] PCP - General Family Medicine 11/02/24 Agapito Kingsley MD [address] [facility] [place] [address] Referring Physician Urology 11/02/24 documented as of this encounter
--- OUTSIDE RECORDS SUMMARY | 2024-11-13 11:35 | XMS_ITS | Clinical Summary ---
Author Organization [facility] Address [address] [place], [place] [address] Care Team Providers Care Propellant Assembler Name Role Phone Holden Quintana DO Primary Care Provider [phone] Allergies No known active allergies Medications conjugated [...] N ot on file 06/29/2022 Data from: https://www.neighborhoodatlas.medicine.[facility].edu/. Last address used for calculation [address] [facility] 06/29/2022 Comments No Sex and Gender Information [...] EDT Narrative 01/12/2022 10:46 AM EDT [facility] Gastrointestinal Endoscopy Patient Name: Mirella Roblero Procedure [...] bowel preparation was evaluated using the BBPS ([place] Bowel Preparation Scale) with scores of: Right [...] the patient. Procedure Code(s): --- Professional --- 86163, Colonoscopy, flexible; with biopsy, single or multiple Diagnosis Code(s): --- Professional --- K63.5, Polyp of colon K64.1, Second degree hemorrhoids K59.00, Constipation, unspecified CPT copyright 2019 [employer]. All rights reserved. The codes documented in this report are preliminary and upon novelty balloon assembler and packer review may be revised to meet current [...] loss was minimal. us Dina Pack MANAGER POWER.SUPERVISOR INSPECTION DIGESTIVE DISEASE Final Res ult from Last 3 Months or Most Recently Relevant to Health Maintenance Insurance [facility] MEDICARE ADVANTAGE PPO Care Teams Propellant Assembler Relationship Specialty Start Date End Date Holden Quintana DO [address] [place] [address] PCP - General 04/21/01
--- OUTSIDE RECORDS SUMMARY | 2024-11-13 11:36 | XMS_ITS | Encounter Summary ---
Author Organization [facility] Address [address] [place] [address] Care Team Providers Care Ladle Builder Name Role Phone Holden Quintana DO Primary Care Provider [phone] Source Comments In the event this information is protected by the Federal Confidentiality of Alcohol and Drug AbusePatient Records regulations: The Federal rules restrict any use of the information to criminally investigate or prosecute any alcohol or drug abuse patient.[facility] Encounter Details Date Type Department Care Team (Late st Contact Info) Description 06/14/2021 Patient [place] [address] Provider, [facility] Financial Clearance Social History Tobacco Use Types Packs/Day Years Used Date Smoking Tobacco: Never Smokeless Tobacco: Never Area Deprivation Index Answer Date Vicente rded National Score (1-100), lower number is lower ri sk Not on file 02/14/2021 State Score (1-10), lower number is lower risk N ot on file 02/14/2021 Data from: https://www.neighborhoodatlas.medicine.[facility].edu/. Last address used for calculation Not [...] on filedocumented in this encounter Care Teams Ladle Builder Relationship Specialty Start Date End Date Holden Quintana DO [address] [place] [address] PCP - General 04/21/01 documented as of this encounter
--- OUTSIDE RECORDS SUMMARY | 2024-11-13 11:36 | XMS_ITS | Encounter Summary ---
Author Organization [facility] Address [address] [place] [address] Care Team Providers Care Telegraph Operator Name Role Phone Holden Quintana DO Primary Care Provider [phone] Source Comments In the event this information is protected by the Federal Confidentiality of Alcohol and Drug AbusePatient Records regulations: The Federal rules restrict any use of the information to criminally investigate or prosecute any alcohol or drug abuse patient.[facility] Encounter Details Date Type Department Care Team (Late st Contact Info) Description 04/12/2021 Patient Msg [facility] [place] [address] Provider, [facility] SCHEDULE INJECTION Social History Tobacco Use Types Packs/Day Years Used Date Smoking Tobacco: Never Smokeless Tobacco: Never Area Deprivation Index Answer Date Vicente rded National Score (1-100), lower number is lower ri sk Not on file 02/14/2021 State Score (1-10), lower number is lower risk N ot on file 02/14/2021 Data from: https://www.neighborhoodatlas.medicine.[facility].edu/. Last address used for calculation Not [...] on filedocumented in this encounter Care Teams Telegraph Operator Relationship Specialty Start Date End Date Holden Quintana DO [address] [place] [address] PCP - General 04/21/01 documented as of this encounter
--- OUTSIDE RECORDS SUMMARY | 2024-11-13 11:36 | XMS_ITS | Clinical Summary ---
Author Organization [facility] Address [address] [place] [address] Care Team Providers Care Back Hand Name Role Phone Holden Quintana Primary Care Provider [phone] Allergies No known active allergies Medications amLODIPine [...] Department Care Team Description 09/03/2024 Telephone [facility] [address] [place] [address] Magy Fierro DO from Last 3 Months [...] 11/17/2024 8:45 AM EDT Office Visit [facility]THOAO [address] [place] [address] Errol Vaughan, DO [address] [place] [address] 12/15/2024 11:15 AM EDT Office Visit [facility] OB [address] [place] [address] Magy Fierro DO [address] [place] [address] Health Maintenance Due Date Last Done Comments [...] Alexey Villatoro M.D.12/06/2022 9:09 AM Dictation Location: [facility] Transcribed By: [facility] 12/06/22908 Dictated By: Alexey Villatoro DO 12/06/22 09 Signed By: <Electronically signed by Alexey Villatoro DO in OV> 12/06/22 0909 Narrative 12/06/2022 12:33 PM EDT [facility] [place] [address] Mammography Report Signed Patient: Mirella Roblero MR#: [id number] : 1955 Acct:[id number] Age/Sex: 67 / F ADM Date: 12/06/22 Loc: CT Room: Type: [facility] Attending Dr: Magy Fierro DO Copies to: [...] Procedure Note Radiology, Radiologist, MD - 12/06/2022 [facility] Main [place] [address] [place] [address] Mammography Report Signed Patient: Mierlla Roblero AMR#: [id number] : 5Acct:[id number] Age/Sex: 67 / FADM Date: 12/06/22 Loc: CT Room:Type: [facility] Attending Dr: Magy Fierro DO Copies to: [...] Maintenance Insurance [employer] MEDICARE Care Teams Back Hand Relationship Specialty Start Date End Date Holden Quintana [address] [place] [address] PCP - General Family Medicine 11/06/22
--- OUTSIDE RECORDS SUMMARY | 2024-11-13 11:36 | XMS_ITS | Encounter Summary ---
Author Organization [facility] Address [address] [place] [address] Care Team Providers Care Event Executive Name Role Phone Holden Quintana DO Primary Care Provider [phone] Source Comments In the event this information is protected by the Federal Confidentiality of Alcohol and Drug AbusePatient Records regulations: The Federal rules restrict any use of the information to criminally investigate or prosecute any alcohol or drug abuse patient.[facility] Reason for Visit * Reason Comments Radiology XR Encounter Details Date Type Department Care Team (Late st Contact Info) Description 06/21/2021 Radiology Radiology [address] [place] [address] Ashley Cleveland, RT(R) Radiology XR Social History Tobacco Use Types Packs/Day Years Used Date Smoking Tobacco: Never Smokeless Tobacco: Never Area Deprivation Index Answer Date Vicente rded National Score (1-100), lower number is lower ri sk Not on file 02/14/2021 State Score (1-10), lower number is lower risk N ot on file 02/14/2021 Data from: https://www.neighborhoodatlas.medicine.[facility].edu/. Last address used for calculation [...] on filedocumented in this encounter Care Teams Event Executive Relationship Specialty Start Date End Date Holden Quintana DO [address] [place] [address] PCP - General 04/21/01 documented as of this encounter
== END 2024-11-13 11:34 | disposition home or self-care (01) ==
LOC: PST 11:34
PROVIDERS: PCP Family Medicine; Visit Provider Urology
DX: Z01.818 Encounter for other preprocedural examination (principal); N20.0 Calculus of kidney

== ENCOUNTER 2024-11-26 11:50 | Day surgery (SDC) | payer MEDICARE, SELFPAY ==
[2024-11-26] VITALS (10 sets, daily range): BP systolic 141–172; BP diastolic 72–81; PULSE 59–74; TEMP 36.4–36.5; O2SAT 94–100; BMI 25.0
[2024-11-26] MEDS: LACTATED RINGER'S SOLUTION 1,000 ML 50 ML IV (12:17)
[2024-11-26] MEDS: CEFAZOLIN SODIUM 2 GM/50 ML D5W PREMIX IV (14:15)
[2024-11-26] MEDS: IOHEXOL 240 MG/ML - 10 ML VIAL 120 MG INJ (14:44)
--- NOTE | 2024-11-26 14:48 | P.URON_ITS ---
Urology Surgery Operative Note Operative Note Procedure Date: 11/26/24 Time Out Performed: yes Pre-op Diagnosis: Left renal calculus Post-op Diagnosis: same as pre-op Procedures performed: 1. Cystoscopy. 2. Left retrograde pyelogram. 3. Left ureteroscopy. #4. Left pyeloscopy Anesthesia: LAMONT Primary Surgeon: Agapito Kingsley Complications: None Estimated blood loss (mL): 0 Findings: 8 mm upper pole stone within a confined presumed diverticulum with no access Specimens: None Drains: None Indications for Procedures: This lady was found to have a 8 mm upper pole stone for which she underwent ESWL but did not get any significant fragmentation. She now presents for ureteroscopic stone manipulation and possible left stent placement. She has signed an informed consent after risks were explained. Detailed description of Procedure: The patient was brought to the operating room and placed on the operating room table in the supine position. SCDs were placed on the lower extremities and turned on and functioning during the entire case. Timeout was done by all parties in the room. We all agreed upon the patient's identification and the planned procedures for this patient. Genn. anesthesia was then administered. The patient was then repositioned into the modified dorsal lithotomy position. All pressure points were satisfactorily padded. Genitalia were sterilely prepped and draped in usual fashion. I started by passing a 22 Malay Olympus cystoscope per urethra and into the bladder. Panendoscopy in the bladder revealed no evidence of any tumors or stones or lesions. I then passed a Glidewire through the scope and cannulated the left ureter and got the wire up to the kidney. Sc ope was removed. I then passed a 10/12 Malay ureteral access sheath over the wire up to the L5 position. The wire and stylette were removed. I then passed a flexible ureteroscope through the access sheath and into the ureter. I ascended up the ureter and then went into the kidney. I scoped into the lower mid and upper pole calyces. None of the calyces revealed any stones. While using fluoroscopy I could see that the tip of the scope never could get right adjacent to the stone. I found no evidence of any tiny passageways to any diverticuli. I then did a retrograde pyelogram through the scope and this clearly delineated that the stone was above and adjacent to an upper pole calyx. It was difficult to tell if this was within a true diverticulum or not. I then reexamined endoscopically all of the upper pole calyces and still found no evidence of any communicating narrowed channels. Therefore, I then removed the scope and access sheath. The bladder was emptied with the cystoscope and then removed. The patient was then transferred to a [facility] bed and wheeled to PACU in stable condition.
== END 2024-11-26 16:20 | disposition home or self-care (01) ==
PROVIDERS: PCP Family Medicine; Visit Provider Urology
PROC: (CPT 52351; principal; 2024-11-26 12:55)
DX: N20.0 Calculus of kidney (principal); I10 Essential (primary) hypertension; K21.9 Gastro-esophageal reflux disease without esophagitis; Z90.49 Acquired absence of other specified parts of digestive tract; Z90.710 Acquired absence of both cervix and uterus
CPT/HCPCS: 52351; 74420; J0690; J1100; J1885; J2250; J2405; J2704; J3010; Q9966